=== PATIENT | male | born 1930 | race Caucasian/White ===

== ENCOUNTER 2017-02-03 10:38 | Emergency (ER) | payer MEDICARE, OTHER ==
[~2017-02-03] VITALS: Ht 170.2 cm; Wt 90.9 kg
[~2017-02-03 10:38] MED LIST: ASCO500T7 PO; CALC600T85 PO; FISH PO; FURO20TA PO; GARLIC; K20 PO; LISI10TA9 PO; MVI PO; RISE35TA11 PO; SALINE NASAL SPRAY; [UNRECOGNIZED DRUG - CODE] PO; [UNRECOGNIZED DRUG - CODE] PO; [UNRECOGNIZED DRUG - OTHER]; [UNRECOGNIZED DRUG - OTHER]; iron
[2017-02-03 10:43] VITALS: BP 155/85; PULSE 73; RESP 20; O2SAT 96
--- NOTE | 2017-02-03 10:58 | ED.REPORT ---
HPI-Back Pain 40 and Over Date of Service Feb 03, 2017 ED Provider: Boston Galeas MD Pt is an 86 year old male who presents to the ED with concerns for back pain that started 4 days ago. He reports that the pain is in his lower back, and he is unable to alleviate the pain. He states that the pain is causing him to lose sleep. He denies any pain like this in the past, or having any injury that would have caused this pain. He reports that he injured his back several years ago, which resulted in back pain, but it was a different type of pain. He denies any incontinence, lower extremity numbness, tingling or weakness. He denies any fevers, sense of a urinary tract infection, or any other symptoms. Pt states that he uses an in and out catheter to empty his bladder, due to an "enlarged bladder". Nursing Notes Stated Complaint: BACK PAIN Chief Complaint: Back Pain or Injury Nursing Notes Reviewed: Yes Allergies: Coded Allergies: pseudoephedrine (Verified Allergy, Unknown, 02/03/17) Uncoded Allergies: SULFA (Allergy, Unknown, 06/14/09) Scheduled ASCORBIC ACID-Expunged Drug, Do Not Renew! (ASCORBIC ACID-Expunged Drug, Do Not Renew!) 500 Mg Tablet 500 MG PO DAILY Calcium Carbonate (Caltrate 600) 600 Mg Tablet 600 MG PO DAILY Ciprofloxacin (Ciprofloxacin) 500 Mg Tablet 500 MG PO BID Cyanocobalamin (Cyanocobalamine) 500 Mcg Tab 500 MCG PO DAILY Fish Oil-Expunged Drug, Do Not Renew! (Fish Oil-Expunged Drug, Do Not Renew!) Cap 1,000 MG PO DAILY Furosemide-Expunged Drug, Do Not Renew! (Lasix-Expunged Drug, Do Not Renew!) 20 Mg Tablet 20 MG PO DAILY Hydrocod/APAP-Expunged, Do Not Renew! (Vicodin 5/500-Expunged Drug, Do Not Renew !) 1 Tab Tab 1 TAB PO Q3-4H Lisinopril-Expunged Drug, Do Not Renew! (Lisinopril-Expunged Drug, Do Not Renew! ) 10 Mg Tablet 10 MG PO BID Therapeutic Multivit/Minerals-Expunged Drug, (Therapeutic Multivit/Minerals- Expunged Drug,) 1 Ea Tab 1 TAB PO DAILY Scheduled PRN Cyclobenzaprine (Cyclobenzaprine) 5 Mg Tablet 5 MG PO HS PRN PRN Spasm Ibuprofen (Ibuprofen) 600 Mg Tablet 600 MG PO TID PRN PRN For Pain Miscellaneous Medications ([iron]) ([Saline Nasal [place]]) ([Garlic]) ([Lipoflavonide]) ([Urosdiol]) Potassium Chl-Expunged Drug, Do Not Renew! (Q-CBC-Ppmwclhy Drug, Do Not Renew!) 20 Meq Tabsr 20 MEQ PO Risedronate-Expunged Drug, Do Not Renew! (Risedronate-Expunged Drug, Do Not Renew!) 35 Mg Tablet 35 MG PO General Time Seen by MD: 10:53 Chief Complaint Back pain Hx Obtained From: Patient, Spouse Arrived By: Walk-in Sudden in Onset?: Yes Onset Occurred: 4 days ago Symptom Duration: Since onset Location: : Generalized Quality: Painful Severity: Current: Mild Severity: Maximum: Moderate Similar Sx Previous: Yes Past Medical History Past Medical History In and out cather for bladder emptying Review of Systems Constitutional: Denies: Chills, Fever, Malaise, Weakness - generalized Respiratory: Denies: Non-productive cough, Shortness of breath, Wheezing Cardiovascular: Denies: Chest pain, Syncope GI: Denies: Abdominal pain, Nausea, Vomiting Male: Denies Dysuria, Denies Flank pain, Denies Urinary frequency, Denies Urinary urgency Musculoskeletal: Reports: Back pain, Denies: Neck pain Neurologic: Denies: Syncope, Weakness Complete sys rev & neg: except as marked. Physical Exam Initial Vital Signs Vital Signs (First) Date Time Temp Pulse Resp B/P Pulse Ox O2 Delivery O2 Flow Rate FiO2 02/03/17 10:43 36.3 73 20 155/85 96 Room Air Initial VS: Reviewed Head / Eyes: Atraumatic, Normocephalic, PERRL ENT: Mucous membranes moist, Conjunctiva normal, No scleral icterus Neck: Supple, Non-tender, Full range of motion Skin: Warm, Dry, No cyanosis Psychiatric: Mood/affect normal, Behavior normal, Normal thought content General/Constitutional: Awake, Alert, Cooperative Respiratory / Chest: Atraumatic, Breath sounds NL, Breath sounds = bilat, No respiratory distress Cardiovascular: Heart rate NL, Regular rhythm, Heart sounds NL, No gallop, No murmurs, No rubs Abdomen: Atraumatic, Soft, Non-tender Back: Inspection NL, No CVA tenderness Left lower back tenderness Neurologic: Oriented X3, Speech NL, No motor deficits, No sensory deficits, CN II - XII intact Interpretation & Diagnostics Lab Results Interpretation Test 02/03/17 12:04 Urine Color Yellow (YELLOW) Urine Appearance Cloudy (CLEAR,HAZY) Urine pH 5.0 (5.0-8.0) Urine Specific [place] 1.009 (1.003-1.035) Urine Protein Negativemg/dL (NEG,TRACE) Urine Glucose (UA) Negativemg/dL (NEGATIVE) Urine Ketones Negativemg/dL (NEGATIVE) Urine Occult Blood Small (NEGATIVE) Urine Nitrite Negative (NEGATIVE) Urine Bilirubin Negative (NEGATIVE) Urine Urobilinogen Normalmg/dL (NORMAL) Urine Leukocyte Esterase Large (NEGATIVE) Urine RBC 0-2/hpf (0-2) Urine WBC Packed/hpf (0-5) Urine Epithelial Cells Few/hpf (NONE-MOD) Urine Crystals None seen (NONE SEEN) Urine Bacteria Many/hpf (NONE-FEW) Urine Hyaline Casts None/lpf (NONE) Urine Granular Casts None seen (NONE SEEN) Urine Waxy Casts None seen (NONE SEEN) Urine Red Blood Cell Casts None seen (NONE SEEN) Urine White Blood Cell Casts None seen (NONE SEEN) Urine Mucus None seen (None Seen) Urine Trichomonas None seen (NONE SEEN) Urine Yeast None (NONE SEEN) Urinalysis Comment None Urine Culture Reflexed Indicated Hold Urine Received (Received) Re-Eval/Medical Decision Med Decision/Clinical Course 86-year-old male history of chronic self-catheterization presenting with left lower back pain times several days. He reports history of similar in the past which has been related to musculoskeletal back pain. He has no red flag symptoms. Chronic UTIs. He has no nausea vomiting, fevers chills, abdominal pain. Vital signs are stable. His urine suggests UTI. We will send for culture. His pain is more consistent with musculoskeletal back pain. He was given Toradol with some improvement. Patient was discharged home with parents state nonsteroidal anti-inflammatories, Flexeril as needed. He will be given a prescription for ciprofloxacin. Return precautions for any red flag symptoms for back pain or any sense symptoms pyelonephritis. Otherwise follow-up with primary doctor 1-2 days. Source of Hx: Old records Re-Evaluation/Progress : Time of Eval: 12:13 Re-Evaluation/Progress Note: Pt is rechecked and informed of his diagnosis and the plan to discharge him at this time. He understands and agrees, all questions are addressed. Counseled Regarding: Diagnosis, Lab results, When/why to return to ED Discharge & Departure Impression: Primary Impression: Back pain Additional Impression: UTI (urinary tract infection) Disposition: Home Discharge Condition All VS Reviewed: Yes Condition: Stable Additional Instructions: Take NSAIDS and Flexeril for the pain. NOTE: Flexeril may cause drowsiness, do not drive or drink alcohol while taking this medication. Take the antibiotic ( Ciprofloxacin) as prescribed for the presumed urinary tract infection. Follow up with your primary care provider in the next couple of days. Return to the emergency department with any worsening back pain, fevers, nausea, vomiting, incontinence, numbness, weakness or tingling in your lower extremities or any other worsening or concerning symptoms. Referrals: Dg Doll MD (PCP) [place] Attestation Portions of this note were transcribed by Tamela Lomeli. I, Dr. Galeas personally performed the history, physical exam and medical decision-making; I reviewed and confirmed the accuracy of the information in the transcribed note. Signed by: Alena Villarreal, 02/03/2017 12:13 copies to: Dg Doll MD, Ben M MD Feb 03, 2017 10:58 EZEQUIEL LOMELI Feb 03, 2017 11:08
[2017-02-03] MEDS ORDERED: CYCL5TAB PO (12:08)
[2017-02-03] MEDS ORDERED: CIPR-198 PO (12:08)
[2017-02-03 12:23] VITALS: BP 157/81; PULSE 68; RESP 16; O2SAT 97
[2017-02-03] MEDS ORDERED: IBUP-1827 PO (12:24)
[2017-02-03 12:27] LABS: APPEARANCE,URINE CLOUDY (CLEAR,HAZY); COLOR,URINE YELLOW (YELLOW); OCCULT BLOOD,URINE SMALL (NEGATIVE); UROBILINOGEN,URINE NORMAL (NORMAL)
== END 2017-02-03 12:25 | disposition home or self-care (01) ==
LOC: SED 10:38
DX: M54.5 Low back pain (principal); N39.0 Urinary tract infection, site not specified; B96.1 Klebsiella pneumoniae [K. pneumoniae] as the cause of diseases classified elsewhere; Z88.8 Allergy status to other drugs, medicaments and biological substances
CPT/HCPCS: 81000; 87077; 87086; 87088; 87186; 96372; 99284; J1885

== ENCOUNTER 2017-02-06 14:04 | Inpatient (IN) | payer MEDICARE, OTHER ==
[~2017-02-06] VITALS: Ht 170.2 cm; Wt 91.4 kg
[~2017-02-06 14:04] MED LIST changes: +CIPR-198 PO; +CYCL5TAB PO; +IBUP-1827 PO
[2017-02-06 14:17] VITALS: BP 156/82; PULSE 91; RESP 18; O2SAT 97
[2017-02-06 16:53] LABS: BASOPHILS % (AUTO) 0.3 % (0-3); EOSINOPHILS % (AUTO) 0.8 % (0-5); MONOCYTES % (AUTO) 13.7 % (4-12); Mean Corpuscular Hemoglobin 31.4 pg (27.0-35.0); Mean Corpuscular Volume 94.3 fL (81-100); NEUTROPHILS % (AUTO) 64.6 % (40-74); Platelet Count 163 bil/L (150-400)
--- NOTE | 2017-02-06 17:23 | DRSVH ---
PROCEDURE: US RENAL SONOGRAM INDICATIONS: back pain, UTI TECHNIQUE: Real-time scanning was performed of the kidneys and bladder, with image documentation. COMPARISON: None. FINDINGS: Kidneys: Kidneys are normal in size. Right kidney measures 11.8 cm long; left kidney measures 12.1 cm long. Right renal cortical thickness is 2.0 cm; left renal cortical thickness is 1.4 cm. Renal c ortical echotexture is normal. No hydronephrosis or nephrolithiasis. No suspicious solid mass lesio ns. There is a 3.6 x 4.2 x 2.2 cm right parapelvic cyst. Bladder: Pre-void bladder volume is 277 mL. There is a large right posterior bladder diverticulum. Ureteral jet was visualized. No post void residual was obtained due to patient's discomfort. Miscellaneous: No free pelvic fluid. IMPRESSION: 1. No hydronephrosis or nephrolithiasis. 2. Right bladder diverticulum. Dictated by: Zolia Rosa M.D. on 02/06/2017 at 17:18 Approved by: Zoila Rosa M.D. on 02/06/2017 at 17:21
[2017-02-06 17:28] LABS: TROPONIN T < 0.010 ug/L (0.0-0.011)
--- NOTE | 2017-02-06 17:59 | ED.REPORT ---
HPI-Back Pain 40 and Over Date of Service Feb 06, 2017 ED Provider: Julio Cesar Engel PA-C Nathan is an 86-year-old male presenting with chief complaint low back pain. Patient reports a one-week history of back pain, which began as he is bending over working on his lawnmower. Seen in this department 3 days ago treated with cyclobenzaprine, ketorolac. Patient does not find NSAIDs and acetaminophen helpful. Continues to complain of poor sleep, spastic pain, pain with walking. Reports remote history of back injury. Admits history of diabetes. Denies numbness, tingling, weakness or pain in lower extremity. Denies fever, HIV, organ transplant, immunosuppression, recent surgery, recent infection, history of back surgery, surgical implants and IV drug use. Denies bowel/bladder dysfunction and saddle anesthesia. Also diagnosed with urinary tract infection , likely secondary to his self cathing, which is being treated with ciprofloxacin at his last visit. Review of records indicates that this organism is susceptible. Patient in and out caths because of BPH and an "enlarged bladder." Nursing Notes Stated Complaint: SEVERR BACK PAIN /SPASM WITH CHEST PAIN Chief Complaint: Back Pain or Injury Nursing Notes Reviewed: Yes Allergies: Coded Allergies: Sulfa (Sulfonamide Antibiotics) (Verified Allergy, Intermediate, TONGUE SWELLS, 02/06/17) pseudoephedrine (Verified Allergy, Unknown, 02/06/17) Uncoded Allergies: SULFA (Allergy, Unknown, 06/14/09) Scheduled ([lip-flavonoid]) TAB DAILY Glipizide ER (Glipizide ER) 5 Mg Tab.er.24 5 MG PO DAILY Multivitamin (Multi Vitamin Daily) 1 Each Tablet 1 EACH PO DAILY Pantoprazole (Pantoprazole DR) 40 Mg Tablet.dr 40 MG PO DAILY Scheduled PRN Acetaminophen (Acetaminophen) 325 Mg Tablet 325 MG PO Q4H PRN PRN For Fever Cyclobenzaprine (Cyclobenzaprine) 5 Mg Tablet 5 MG PO HS PRN PRN Spasm Ibuprofen (Ibuprofen) 600 Mg Tablet 600 MG PO TID PRN PRN For Pain Miscellaneous Medications ([Saline Nasal [place]]) Losartan Potassium (Losartan Potassium) 50 Mg Tablet 50 MG PO General Time Seen by MD: 15:56 Chief Complaint Back pain Sudden in Onset?: No Past Medical History Past Medical History In and out cather for bladder emptying Diabetes Review of Systems Review of Systems Note: Negative unless stated otherwise in history of present illness Physical Exam General: Well appearing, well developed, well nourished, no acute distress. Head: Atraumatic, normocephalic. Eyes: No scleral icterus or injection. No discharge. Vision grossly intact. ENT: Voice clear, hearing grossly intact. Respiratory: Regular rate and rhythm. Breath sounds present, clear to auscultation and equal bilaterally. No respiratory distress. No increased work of breathing, speaks in complete sentences. Cardiovascular: Regular rate and rhythm, without murmur, gallop or rub. No pedal edema. Skin: Warm and dry. Back: Inspection, negative midline spinous process tenderness, negative SI tenderness, positive left CVA tenderness. Neurological: Antalgic gait, normal toe rise, normal heel rise. Patellar and Achilles reflexes present and equal B/L. Sensation to sharp touch intact at medial leg, dorsal foot and lateral foot B/L. negative seated straight leg raise , negative seated cross straight leg raise. Psychological: Alert and oriented. Speech appropriate, linear and logical. Behavior appropriate. Initial Vital Signs Vital Signs (First) Date Time Temp Pulse Resp B/P Pulse Ox O2 Delivery O2 Flow Rate FiO2 02/06/17 14:17 36.2 91 18 156/82 97 Room Air Elevated blood pressure Interpretation & Diagnostics Interpretation & Diagnostics: PROCEDURE: CT KUB (PNL-7475) INDICATIONS: back pain IMPRESSION: 1. Nonobstructing right nephrolithiasis. 2. Large right-sided bladder diverticula with irregular bladder wall thickening and perivesicular fat stranding. These findings are suspicious for cystitis. Specifically, infection within the bladder diverticula. 3. Findings suspicious for hepatic cirrhosis. 4. L1 wedge compression deformity which is new when compared with prior CT from 2011. The acuity of this finding is unknown. Please correlate with clinical history and evaluate for focal acute pain in this region. 5. Normal appendix. Lab Results Interpretation Result Diagram: 02/06/17 1635 02/06/17 1635 Test 02/06/17 16:35 White Blood Count 10.6th/mm3 (3.8-10.1) Red Blood Count 4.77mil/mm3 (4.40-5.80) Hemoglobin 15.0g/dL (13.8-17.2) Hematocrit 45.0% (41.0-50.0) Mean Corpuscular Volume 94.3fL (81-100) Mean Corpuscular Hemoglobin 31.4pg (27.0-35.0) Mean Corpuscular Hemoglobin Concent 33.3% (32.0-37.0) Red Cell Distribution Width 13.6% (12.3-15.4) Platelet Count 163bil/L (150-400) Neutrophils (%) (Auto) 64.6% (40-74) Lymphocytes (%) (Auto) 20.2% (14-46) Monocytes (%) (Auto) 13.7% (4-12) Eosinophils (%) (Auto) 0.8% (0-5) Basophils (%) (Auto) 0.3% (0-3) Sodium Level 133mEq/L (134-144) Potassium Level 4.3mEq/L (3.5-5.2) Chloride Level 96mEq/L (97-108) Carbon Dioxide Level 21mmol/L (18-29) Blood Urea Nitrogen 14mg/dL (8-27) Creatinine 0.79mg/dL (0.76-1.27) Estimat Glomerular Filtration Rate 99mL/min (>59) Glucose Level 208mg/dL (60-99) Calcium Level 9.3mg/dL (8.5-10.1) Total Bilirubin 0.6mg/dL (0.0-1.2) Aspartate Amino Transf (AST/SGOT) 25U/L (0-50) Alanine Aminotransferase (ALT/SGPT) 24U/L (0-44) Alkaline Phosphatase 148U/L (25-160) Troponin T < 0.010ug/L (0.0-0.011) Total Protein 7.7g/dL (6.4-8.4) Albumin 3.4g/dL (3.4-5.0) Hold Law Top Tube Received (Received) ECG Interpretation ECG Interpretation: Sinus rhythm with a rate of 79 bpm. Prolonged FL interval greater than 220, probable left atrial enlargement, old inferior infarct. Negative ST elevation changes. Time: 19:09 Interpreted by: ED physician () US Renal/Urinary Tract PROCEDURE: US RENAL SONOGRAM INDICATIONS: back pain, UTI IMPRESSION: 1. No hydronephrosis or nephrolithiasis. 2. Right bladder diverticulum. Exam Performed by: Radiologist Re-Eval/Medical Decision Med Decision/Clinical Course Is an 86-year-old male with a one-week history of low back pain that began as he was bending over working on his lawnmower. See this department about 3 days ago, treated with NSAIDs, cyclobenzaprine which he says he no longer helpful. Reports cramping pain which occasionally so bad that it causes chest pain, which the patient believes is his heart. Also diagnosed with a UTI which review of cultures indicates is being treated appropriately with ciprofloxacin. Denies neurological symptoms, bowel/bladder dysfunction, saddle anesthesia, fever. Physical examination reveals normal neurological examination, left CVA tenderness, negative midline spinous process tenderness. Discussed the case with Dr. Galeas, who had seen the patient initially. He recommended CBC , CMP and renal ultrasound as well as EKG, troponin. EKG and troponin are reassuring against NM. CBC reveals a mild leukocytosis, CMP is unremarkable. At this point I am reassured that this is most likely musculoskeletal back pain, and less likely to be AAA, nephrolithiasis, pyelonephritis, cauda equina, epidural abscess, epidural hematoma, trauma. Patient responds poorly to 10 mg oxycodone, 5 mg baclofen. I discussed this with Dr. Costa, as Dr. Axel Mg has gone off shift. Dr. Costa recommends CT KUB, which reveals nonobstructing right nephrolithiasis, large right-sided bladder diverticula with stranding suspicious for cystitis, findings suspicious for hepatic cirrhosis as well as an L1 wedge compression deformity new since 2011. Unknown acuity. Discussed this finding with Dr. Ang, who recommends brace and spine follow-up. I discussed this with Dr. Alvarado recommends a lumbar brace and pain medications , admission if necessary. Patient does not feel that this pain is sufficiently controlled to return to home. He responds favorably to 1 mg IM Dilaudid. I discussed this with , who except admit. Re-Evaluation/Progress : Time of Eval: 21:21 Re-Evaluation/Progress Note: Patient complains of worsening pain. He wishes to be admitted for pain control. Consultation #1: Referral / Consult Name: Ismael Ang MD Consulted With: Orthopedic Call Returned at: 21:00 Note: Recommends TLSO brace, spine surgery follow-up. Consultation #2: Referral / Consult Name: Yo Alvarado MD Call Returned at: 21:57 Note: Dr. Alvarado believes this can be managed outpatient. Advises lumbar brace and pain medications, admission for pain if necessary. Consultation #3: Referral / Consult Name: Dayne Greenfield MD Consulted With: Hospitalist Call Returned at: 22:17 Foam Fabricator: Accepts admit Discharge & Departure Impression: Primary Impression: Compression fracture of L1 lumbar vertebra Encounter type: initial encounter Fracture type: closed Qualified Code: S32.010A - Wedge compression fracture of first lumbar vertebra, initial encounter for closed fracture Additional Impression: Elevated blood pressure reading Disposition: ADMITTED TO HOSPITAL Referrals: Dg Doll MD (PCP) EDSupervising Provider for APC: Boston Galeas MD Attending Statement I agree with the assessment and plan. I performed a physical examination and review the diagnostics. copies to: Dg Doll MD, Seth PA-C Feb 06, 2017 17:59 Otis Costa DO Feb 08, 2017 03:53 Encounter type: initial encounter Fracture type: closed Qualified Code: S32.010A - Wedge compression fracture of first lumbar vertebra, initial encounter for closed fracture Additional Impression: Elevated blood pressure reading Disposition: ADMITTED TO HOSPITAL Referrals: Dg Doll MD (PCP) EDSupervising Provider for APC: Boston Galeas MD copies to: Dg Doll MD, Seth PA-C Feb 06, 2017 17:59 copies to: Dg Doll MD, Seth PA-C Feb 06, 2017 17:59 rest. Reasonable activity as tolerated is the best. Apply ice to the affected area 4 times a day for 20 minutes over the next 24 hours. After that you will probably find warm compresses most helpful. The pain is best treated with 800 mg of ibuprofen (Advil, Motrin) every 6 hours , or 1000 mg of acetaminophen (Tylenol) every 6 hours. These drugs can be taken at the same time for more severe pain. I will write a prescription for a small amount of oxycodone to be taken every 4-6 hours for pain not controlled by these other medications. Please do not drive or drink alcohol within 4 hours of taking this medication. I will also write prescription for baclofen 5 mg to be taken 3 times a day. This should be helpful for the spasticity. Do not use this with cyclobenzaprine. Continue taking your ciprofloxacin. Most of all be patient: 70-90% of people with injuries presenting like yours will resolve within 7 weeks, even without treatment. Follow-up with your primary care provider in the next week or two to be sure your recovery is progressing as expected. Return the emergency department for new or worsening symptoms such as loss of bowel/bladder control, numbness between your legs, new weakness/numbness or high fever. Follow-up with your primary care provider as soon as possible. Return to emergency department for new or worsening symptoms including loss of bowel/bladder function, fever or numbness between your legs. I also note that your blood pressure was elevated during your visit to the emergency department. Please discuss this with your primary care provider. Referrals: Dg Doll MD (PCP) EDSupervising Provider for APC: Boston aGleas MD copies to: Dg Doll MD, Seth PA-C Feb 06, 2017 17:59
[2017-02-06] MEDS ORDERED: HYDROmorphone 0.5 mg/0.5 mL iSecure Syringe IM ONE (19:25)
--- NOTE | 2017-02-06 20:20 | DRSVH ---
PROCEDURE: CT KUB (PNL-7475) INDICATIONS: back pain TECHNIQUE: Noncontrast 5 mm thick sections acquired from the diaphragms to the symphysis. 5 mm thick coronal an d sagittal reformats were then performed. For radiation dose reduction, the following was used: aut omated exposure control, adjustment of mA and/or kV according to patient size. COMPARISON: [facility], CT, ABD/PELVIS W/CON (PN), 01/23/2012, 14:29. FINDINGS: Image quality: Excellent. Lung bases: Lung bases are clear. Heart size is enlarged. Urinary system: Both kidneys are normal in size. There is a nonobstructing 3 mm diameter inferior po le right renal calculus which is unchanged in position when compared with the study dated 01/23/12. A low density right parapelvic cyst is redemonstrated. No hydronephrosis or perinephric fat stranding. Both ureters appear non-dilated throughout their expected courses. There is irregular thickening of the bladder wall. Additionally, there is a large irregularly margina lenka superior right and a more circumscribed posterior right bladder diverticulum. These appear decomp ressed on the current study are likely present on the comparison study dated 01/23/12. There is mild p erivesicular fat stranding most notable around the 2 right-sided bladder diverticula. Other solid organs: The liver has a nodular appearance suggesting cirrhotic transformation. A low den sity cystic lesion is within the left hepatic lobe unchanged from the study dated 01/23/12 which likel y represents a hepatic cyst. The spleen demonstrates normal size. Gallbladder is surgically absent. Pancreas is normal in contours. Punctate calcifications within the body of the pancreas suggest prior pancreatitis. No adrenal nodules. Peritoneum and bowel: Unenhanced bowel loops demonstrate normal wall thickness and caliber. The appe ndix is thin walled and gas filled. Anastomotic suture is noted within the sigmoid colon. No free fl uid or air. Nodes and vessels: No retroperitoneal or mesenteric adenopathy by size criteria. Aorta and inferior vena cava are normal in caliber. Abdominal wall: No ventral hernias. Pelvis: No free pelvic fluid. No inguinal adenopathy. There is a small fat-containing right inguina l hernia. Bones: There is a L1 wedge compression deformity with approximately 60% vertebral body height loss. T his is new when compared with the prior study dated 01/23/12. No other compression deformities of the lumbar spine. Severe degenerative changes are present L5-S1. IMPRESSION: 1. Nonobstructing right nephrolithiasis. 2. Large right-sided bladder diverticula with irregular bladder wall thickening and perivesicular fat stranding. These findings are suspicious for cystitis. Specifically, infection within the bladder di verticula. 3. Findings suspicious for hepatic cirrhosis. 4. L1 wedge compression deformity which is new when compared with prior CT from 2011. The acuity of t his finding is unknown. Please correlate with clinical history and evaluate for focal acute pain in t his region. 5. Normal appendix. Dictated by: Zoila Rosa M.D. on 02/06/2017 at 20:11 Approved by: Zoila Rosa M.D. on 02/06/2017 at 20:18
[2017-02-06] MEDS ORDERED: HYDROmorphone 1 mg/mL Inj IM ONE (21:25)
[2017-02-06 21:36] VITALS: BP 153/73; PULSE 91; RESP 16; O2SAT 92
[2017-02-06] MEDS ORDERED: Ondansetron 2 mg/mL 2 mL Inj IVPUSH PRN (22:15)
[2017-02-06] MEDS ORDERED: Polyethylene Glycol (PEG) 17 Gm Powder PO PRN (22:15)
[2017-02-06] MEDS ORDERED: Alum-Mag Hydrox-Simeth 30 mL Suspension PO PRN (22:15)
[2017-02-06] MEDS ORDERED: HYDROmorphone 0.5 mg/0.5 mL iSecure Syringe IVPUSH PRN ×2 (22:15→23:45)
--- NOTE | 2017-02-06 23:04 | PCM.HPMED ---
Subjective Date of Service Feb 06, 2017 Primary Provider: Admitting Physician: Dayne Greenfield MD Primary Care Physician: Dg Doll MD Attending Physician: Dayne Greenfield MD Admit Status: From the Emergency Department, 23-Hour Observation, Non-Telemetry Chief Complaint: Severe Back pain History of Present Illness: Nathan Ponce is an 86-year-old male presenting with Diabetes, Aortic regurgitation, Hypertension, Obesity and GERD who presented to [facility] emergency department due to worsening back pain Patient reported he has been having on and off back pain for year but since the pain has progressively worsened. He was mowing his lawn and was bending over a lot when he felt the pain. Pain manly located in the lumbar area , described as like someone stabbing a sharp knife, no radiation down his legs and no bowel or urinary bowel dysfunction. Associated symptoms includes limited mobility due to pain, difficulty walking. Denies fever, HIV, organ transplant, immunosuppression, recent surgery, recent infection, history of back surgery, surgical implants and IV drug use. He was evaluated to the emergency department 3 days ago treated with cyclobenzaprine, ketorolac. Patient does not find NSAIDs and acetaminophen helpful. Case discussed with HAROON Harrell who spoke to Dr Alvarado (Spinal surgeon) after imaging confirmed L1 compression. No emergent surgery indicated and plans to admit to hospital for pain control Review of Systems: Pertinent positives as noted in HPI. All other systems were reviewed and are negative Allergies Coded Allergies: Sulfa (Sulfonamide Antibiotics) (Verified Allergy, Intermediate, TONGUE SWELLS, 02/06/17) pseudoephedrine (Verified Allergy, Unknown, 02/06/17) Uncoded Allergies: SULFA (Allergy, Unknown, 06/14/09) Home Medications From Next [facility], not yet confirmed Nathan Ponce [id number] 04/25/2016 09:20 AM 08/22 albuterol sulfate HFA 90 mcg/actuation aerosol inhaler inhale 2 puff by inhalation route every 4 - 6 hours as needed Aspirin Low Dose 81 mg tablet,delayed release take 1 tablet by oral route every day Caltrate 600 600 mg (1,500 mg) tablet losartan 50 mg tablet take 1 tablet by oral route every day metformin 1,000 mg tablet take 1/2 tablet by oral route 1 times every day with morning and evening meals Monurol 3 gram oral packet take 1 sachet by oral route dissolved in 3 to 4 ounces (1/2 cup) of water as a single dose pantoprazole 40 mg tablet,delayed release TAKE 1 TABLET DAILY ON AN EMPTY STOMACH FOR ACID REFLUX PMH Diabetes mellitus without any insulin requirement Congestive Heart Failure Hypertension Esophageal reflux Meniere's disease Hepatitis B Sleep apnea with Obesity Benign prostatic hyperplasia Vertigo Aortic root enlargement with mild to moderate aortic regurgitation . Surgical History Left hip surgery Cardiac cath Partial colectomy for gallbladder cyst Cholecystectomy Inge fundoplication Sigmoid resection for diverticular abscess Family History reviewed with no significant history Social History Hx Alcohol Use: No Hx Substance Use: No Hx Tobacco Use: Yes (Quit 4 to 6 yrs ago) Smoking Status: Former Smoker Living Arrangement: with Family Exam Vital Signs Vital Sign - Last Date Time Temp Pulse Resp B/P Pulse Ox O2 Delivery O2 Flow Rate FiO2 02/06/17 21:36 36.4 91 16 153/73 92 Room Air Exam General: Alert, Oriented X3, Cooperative, No acute Distress Eyes: PERRLA, Scleral Anicteric Mouth: Mouth Normal, Mucous Membranes Moist/[place] Neck: Supple, no Thyromegaly, trachea central. Chest & Lungs: Clear to auscultation & percussion, No adventitious breath sounds, no crackles, no wheeze Cardiovascular: Normal S1, Normal S2, No Rubs/Gallops, Regular Rate/Rhythm, (No JVD, no peripheral edema) Pulses: Radial (present and equal), Dorsalis Pedi (present and equal) Abdomen: Soft, Non-tender, Non-distended, Normoactive bowel tones. Musculoskeletal: Limited lumbar motion, tenderness around lumbar area, muscle spams and tightness felt. no swollen or erythematous joints Extremities: No edema, no cyanosis, no clubbing. Skin: No rashes. Warm and dry, no erythematous areas Neurological: Grossly neurologically intact, Normal Speech, Sensation Intact Lymphatic: Lymph nodes Cervical and Axillary not palpable. Lab and Diagnostics Labs Laboratory Tests Test 02/06/17 16:35 White Blood Count 10.6th/mm3 (3.8-10.1) Red Blood Count 4.77mil/mm3 (4.40-5.80) Hemoglobin 15.0g/dL (13.8-17.2) Hematocrit 45.0% (41.0-50.0) Mean Corpuscular Volume 94.3fL (81-100) Mean Corpuscular Hemoglobin 31.4pg (27.0-35.0) Mean Corpuscular Hemoglobin Concent 33.3% (32.0-37.0) Red Cell Distribution Width 13.6% (12.3-15.4) Platelet Count 163bil/L (150-400) Neutrophils (%) (Auto) 64.6% (40-74) Lymphocytes (%) (Auto) 20.2% (14-46) Monocytes (%) (Auto) 13.7% (4-12) Eosinophils (%) (Auto) 0.8% (0-5) Basophils (%) (Auto) 0.3% (0-3) Sodium Level 133mEq/L (134-144) Potassium Level 4.3mEq/L (3.5-5.2) Chloride Level 96mEq/L (97-108) Carbon Dioxide Level 21mmol/L (18-29) Blood Urea Nitrogen 14mg/dL (8-27) Creatinine 0.79mg/dL (0.76-1.27) Estimat Glomerular Filtration Rate 99mL/min (>59) Glucose Level 208mg/dL (60-99) Calcium Level 9.3mg/dL (8.5-10.1) Total Bilirubin 0.6mg/dL (0.0-1.2) Aspartate Amino Transf (AST/SGOT) 25U/L (0-50) Alanine Aminotransferase (ALT/SGPT) 24U/L (0-44) Alkaline Phosphatase 148U/L (25-160) Troponin T < 0.010ug/L (0.0-0.011) Total Protein 7.7g/dL (6.4-8.4) Albumin 3.4g/dL (3.4-5.0) Hold Law Top Tube Received (Received) Result Diagram: 02/06/17 1635 02/06/17 1635 X-Rays, CTs and MRIs US RENAL SONOGRAM 02/06 IMPRESSION: 1. No hydronephrosis or nephrolithiasis. 2. Right bladder diverticulum. Dictated by: Zoila Rosa M.D. on 02/06/2017 at 17:18 Approved by: Zoila Rosa M.D. on 02/06/2017 at 17:21 CT KUB 02/06 IMPRESSION: 1. Nonobstructing right nephrolithiasis. 2. Large right-sided bladder diverticula with irregular bladder wall thickening and perivesicular fat stranding. These findings are suspicious for cystitis. Specifically, infection within the bladder diverticula. 3. Findings suspicious for hepatic cirrhosis. 4. L1 wedge compression deformity which is new when compared with prior CT from 2012. The acuity of this finding is unknown. Please correlate with clinical history and evaluate for focal acute pain in this region. 5. Normal appendix. Dictated by: Zoila Rosa M.D. on 02/06/2017 at 20:11 Approved by: Zoila oRsa M.D. on 02/06/2017 at 20:18 Assessment & Plan Nathan Ponce is an 86-year-old male presenting with Diabetes, Aortic regurgitation, Hypertension, Obesity and GERD who presented to [facility] emergency department due to worsening back pain 1. Acute Lower back pain secondary to L1 wedge compression. Present on admission. Ongoing and persistent Pain uncontrolled requiring hospitalization. HAROON Harrell in the ED contacts Dr Alvarado for recommendations. Differential diagnosis includes metastatic disease - RESEARCH ENVIRONMENTAL SCIENTIST Dilaudid, consider Palliative consult to help with pain management - Vistaril PRN for spasm - Dr Alvarado (Neurosurgeon) recommends follow up as outpatient not indication for surgery 2 Diabetes Type 2, Chronic - holding Metformin - check A1c - low correction Lispro algorithm 3 Aortic root enlargement with mild to moderate aortic regurgitation Stable with no intervention after recent Cardiology evaluation 4 Hypertension - continue Losartan 50 mg daily 5 GERD - continue Protonix daily - Acetaminophen as needed for mild pain/fever/headache - Bowel regimen as needed - Antiemetic as needed Patient is admitted under observation status with expected length of stay less than 2 midnights due to severity of presenting symptoms, risk of adverse event, and complexity of treatment plan. . VTE Prophylaxis: Sub-Q Heparin (Unfractionated) Resuscitation Status: CPR: Attempt Resuscitation Dayne Greenfield MD Feb 06, 2017 23:04
[2017-02-06] MEDS ORDERED: Glucose 40% Oral Gel 15 Gm Tube PO PRN (23:05)
[2017-02-06] MEDS ORDERED: Dextrose 10% 250 ML IV PRN (23:05)
[2017-02-06 23:06] VITALS: BP 153/73; PULSE 91; RESP 16; O2SAT 92
[2017-02-06 23:16] VITALS: BP 156/90; PULSE 93; RESP 18; O2SAT 94
[2017-02-06] MEDS ORDERED: Dextrose 5% 500 ML IV SCH (23:41)
[2017-02-06] MEDS ORDERED: HYDROmorphone PCA 0.2 mg/mL 30 mL Inj IV PRN (23:45)
[2017-02-06] MEDS: Heparin 5,000 Unit/mL Inj SUBQ SCH (23:56)
[2017-02-07 01:45] VITALS: RESP 16; O2SAT 92
[2017-02-07] MEDS: hydrOXYzine Pamoate 25 mg Capsule PO PRN ×2 (02:58→14:58)
[2017-02-07 04:28] VITALS: BP 144/97; PULSE 80; RESP 20; O2SAT 92
--- NOTE | 2017-02-07 04:29 | NUR ---
Admission Pt admitted to [facility] Rm 1021 at 2300 from the ED. 3 persons needed to transfer Pt from [place] to bed. Pt is here with L1 compression fx. He is in severe pain, 10/10 and with back spasms. IV to Rt FA asymptomatic, flushed and is SL. Pt is CPR limited. Oriented to room, call light and bed controls. Rec'd dilaudid and baclofen shortly after arrival. Ineffective. MD in to assess Pt and ordered INVENTORY SPECIALIST MANAGER dilaudid as Pt was asking for it and has used in past. Pt has neurogenic bladder and self caths at home. Rec'd orders for martinez cath. Inserted with 300cc out. Pt is A/O x4, making needs known. Call light in reach, bed in low position, care continues
[2017-02-07 06:45] VITALS: RESP 16; O2SAT 97
[2017-02-07] MEDS: HYDROcodone-APAP 5-325 mg Tablet PO PRN ×4 (07:26→20:28)
[2017-02-07] MEDS ORDERED: Polyethylene Glycol (PEG) 17 Gm Powder PO ONE (07:45)
[2017-02-07] MEDS: Insulin LISPRO 300 Unit/3 mL Inj SUBQ SCH ×4 (08:00→22:00)
[2017-02-07 08:32] VITALS: BP 145/85; PULSE 87; RESP 18; O2SAT 97
[2017-02-07] MEDS: Heparin 5,000 Unit/mL Inj SUBQ SCH ×3 (08:49→23:56)
[2017-02-07] MEDS: Polyethylene Glycol (PEG) 17 Gm Powder PO SCH (08:49)
[2017-02-07] MEDS: Lidocaine Topical 5% Patch TOPICAL SCH (08:49)
--- NOTE | 2017-02-07 10:44 | NUR ---
Case Management- PORTILLO explained and signed by patient. Copy given to patient. Orginal placed in chart. Regina Tovar RN/ UR
--- NOTE | 2017-02-07 13:10 | PCM.PNMED ---
Subjective Date of Service Feb 07, 2017 Subjective pt c/o severe back pain, denied urinary difficulty difficult to communicate, easily fell asleep on TRANSFORMATION MANAGER dilaudid Exam Vital Signs Vital Sign - Last Date Time Temp Pulse Resp B/P Pulse Ox O2 Delivery O2 Flow Rate FiO2 02/07/17 06:45 16 97 02/07/17 04:28 36.7 80 144/97 02/06/17 23:06 Room Air Intake and Output 02/06/17 02/06/17 02/07/17 Cumulative From/Thru 15:00 23:00 07:00 02/06/17 14:17 - 02/07/17 06:44 Intake Total 216 ml 216 ml Output Total 700 ml 1100 ml 1800 ml Balance -700 ml -884 ml -1584 ml Intake Oral 150 ml 150 ml IV Total 66 ml 66 ml Output Urine Total 700 ml 1100 ml 1800 ml # Bowel Movements 0 0 Exam elderly male, agitated with pain, NAD, comfortably laying down on the bed no JVD, MMM, no LAD RRR, nl s1, s2 no mrg CTAB, no w,c S,distended, NT, hypoactiveBS+ warm, no edema, pulses 2/2 LE motor 4/5 limited due to pain, sensory intact to dull Diffuse td on lower back, spinal IVs and Medications Medications Reviewed: Medications were reviewed in detail Lab and Diagnostics Result Diagram: 02/06/17 1635 02/06/17 1635 X-Rays, CTs and MRIs US RENAL SONOGRAM 02/06 IMPRESSION: 1. No hydronephrosis or nephrolithiasis. 2. Right bladder diverticulum. Dictated by: Zoila Rosa M.D. on 02/06/2017 at 17:18 Approved by: Zoila Rosa M.D. on 02/06/2017 at 17:21 CT KUB 02/06 IMPRESSION: 1. Nonobstructing right nephrolithiasis. 2. Large right-sided bladder diverticula with irregular bladder wall thickening and perivesicular fat stranding. These findings are suspicious for cystitis. Specifically, infection within the bladder diverticula. 3. Findings suspicious for hepatic cirrhosis. 4. L1 wedge compression deformity which is new when compared with prior CT from 2012. The acuity of this finding is unknown. Please correlate with clinical history and evaluate for focal acute pain in this region. 5. Normal appendix. Dictated by: Zoila Rosa M.D. on 02/06/2017 at 20:11 Approved by: Zoila Rosa M.D. on 02/06/2017 at 20:18 Assessment & Plan Nathan Ponce is an 86-year-old male presenting with Diabetes, Aortic regurgitation, Hypertension, Obesity and GERD who presented to [facility] emergency department due to worsening back pain acute, active 1. intractable acute Lower back pain secondary to L1 wedge compression. Present on admission. -pain is still not controlled even with TRANSFORMATION MANAGER, -stopped TRANSFORMATION MANAGER Dilaudid, plan to chg to oral agent. -will start fentanyl patch 12mcg 3d, tramadol 50mg q8h, norco prn -try to avoid narcotics as much as possible -daily PT -monitor closely on respiratory status, as pt is opioid naive chronic, stable 2 Diabetes Type 2, Chronic, holding Metformin, awaits A1c, continue low correction Lispro algorithm 3 Aortic root enlargement with mild to moderate aortic regurgitation, stable with no intervention after recent Cardiology evaluation 4 Hypertension, continue Losartan 50 mg daily 5 GERD, continue Protonix daily dispo: in 1-2more days, appreciate PT assessment to optimize dispo. VTE Prophylaxis: Sub-Q Heparin (Unfractionated) VTE Mechanical Devices: Intermittant Pneumatic CD Resuscitation Status: CPR: Attempt Resuscitation Time spent 35min Chad Lima MD Feb 07, 2017 08:06
[2017-02-07] MEDS ORDERED: LOSA50TA37 PO (13:19)
[2017-02-07] MEDS ORDERED: [UNRECOGNIZED DRUG - OTHER] (13:19)
[2017-02-07] MEDS ORDERED: PANT40TA3 PO (13:19)
[2017-02-07] MEDS ORDERED: GLIP5TAB26 PO (13:19)
[2017-02-07] MEDS ORDERED: ACET325T51 PO (13:19)
[2017-02-07] MEDS ORDERED: MULT-1018 PO (13:21)
[2017-02-07 14:30] VITALS: BP 158/76; PULSE 62; RESP 18; O2SAT 98
--- NOTE | 2017-02-07 15:07 | NUR ---
Social Work- Initial Assessment Data: See Initial Assessment. Pt is a 86 year old male admitted 02/06/17 under observation status for L1 Compression Fracture per H&P. Pt's pain will need to be controlled on oral medication prior to discharge. Pt's insurance is [employer]. Pt's PCP is Dg Doll MD. SW met with pt and /DPLEONILA Ponce [phone] at bedside regarding discharge plan, SW role explained. Pt was alert and oriented but periodically fell asleep during this assessment and pt's completed most of the questions. Pt and reside in [place] in a house with no internal steps. Pt has a ramp to access his home. Pt uses no DME at baseline but has a walker and cane available at home. Pt does not drive. Pt has no history of HH but has history at [facility] for rehab after a hip fracture. Pt's is interested in Meals on Wheels, information will be provided at bedside. Pt has no LTC or VA benefits. PT orders are active, pt was not able to work with PT secondary to severe pain and spasms. PT will continue to follow. SW will await MD orders for HH and will continue to follow for discharge needs. Pt anticipated to discharge home with spouse, R/O HH services. Pt's payor and observation status is a barrier to SNF at this time. Assessment: Pt who is in extreme pain and who is independent at baseline. Plan: PT will reassess patient tomorrow 02/08. Pt to be provided information about Meals on Wheels. Pt may benefit from HH services at home, SW to await MD order before pursuing this. SW will await MD orders for HH and will continue to follow for discharge needs. Pt anticipated to discharge home with spouse, R/O HH services. Pt's payor and observation status is a barrier to SNF at this time. EILEEN Melendez Addendum: 02/07/17 at 1509 by YUNG VALDEZ Amended: Links added.
--- NOTE | 2017-02-07 15:52 | NUR ---
BACK PAIN P- Patient having back pain with spasms with any kind of activity. State "9/10" pain when shooting pain comes. I- Fentanyl patch applied, Lidoderm patch to back applied, [place] given Q4 and Ultram Q6. Vistaril given Q6. E-Patient continues to have spasms, made aware.
[2017-02-07] MEDS ORDERED: HYDROmorphone 0.5 mg/0.5 mL iSecure Syringe IVPUSH ONE (16:50)
[2017-02-07 21:25] VITALS: BP 146/79; PULSE 77; RESP 16; O2SAT 93
[2017-02-07 21:56] LABS: APPEARANCE,URINE CLOUDY (CLEAR,HAZY); COLOR,URINE YELLOW (YELLOW); OCCULT BLOOD,URINE MODERATE (NEGATIVE); PH,URINE 5.5 (5.0-8.0); UROBILINOGEN,URINE NORMAL (NORMAL)
--- NOTE | 2017-02-08 02:50 | NUR ---
Pain Pt. was able to ambulate to bathroom to brush teeth with one person assist. Pt. is still in a lot of pain with activity. However, during assessment pt. rates pain 5/10. Pt. reports pain is the lowest when lying down and slightly turned to side. [place] PO given earlier in shift, as pain umu with activity. However, pt. has been sleeping for most of the night, and has not requested any PRN pain meds. Will continue to monitor.
[2017-02-08 05:15] VITALS: BP 169/83; PULSE 80; RESP 18; O2SAT 96
[2017-02-08] MEDS: HYDROcodone-APAP 5-325 mg Tablet PO PRN ×4 (05:35→21:15)
[2017-02-08 06:18] LABS: Mean Corpuscular Hemoglobin 31.7 pg (27.0-35.0); Mean Corpuscular Volume 94.9 fL (81-100)
[2017-02-08 06:35] LABS: Magnesium 1.9 mg/dL (1.6-2.6); Phosphorus 3.5 mg/dL (2.5-4.9)
[2017-02-08] MEDS: Insulin LISPRO 300 Unit/3 mL Inj SUBQ SCH ×4 (08:00→22:00)
[2017-02-08] MEDS ORDERED: Fentanyl TOPICAL (09:23)
[2017-02-08] MEDS ORDERED: TRAM-14 PO (09:23)
[2017-02-08] MEDS ORDERED: Acetaminophen PO (09:23)
[2017-02-08] MEDS: Polyethylene Glycol (PEG) 17 Gm Powder PO SCH (09:23)
[2017-02-08] MEDS: Heparin 5,000 Unit/mL Inj SUBQ SCH ×2 (09:35→16:54)
[2017-02-08] MEDS ORDERED: DOCU-41 PO (11:16)
[2017-02-08] MEDS ORDERED: POLY17PO6 PO (11:16)
[2017-02-08] MEDS ORDERED: LIDO700A6 TOPICAL (11:17)
--- NOTE | 2017-02-08 11:19 | PCM.DIMED ---
Discharge Instructions Date of Service Feb 08, 2017 Dates of Hospitalization Feb 06, 2017 at 22:37 Discharge Diagnosis Discharge Diagnosis Intractable back pain likely due to L1 compression fracture Medication Instructions Additional med instructions Pain regimen Tramadol 50mg three times per day [id number] three time per day Lidocaine patch daily Fentanyl 12mcg patch every 3days Please also take Miralax, colace while your are on these pain regimen Diet Discharge Diet: No restrictions Activity Discharge Activity: Home Health Phyical Therapy Call your provider Call your provider for: Other Patient Instructions Patient Instructions You were hospitalized due to severe back pain, likely due to compression fracture at your lower back. You were started on new regimen for your pain, pain was relatively controlled well. Please continue to work with physical therapy at home. follow up with your doctor in 2weeks Follow-up Provider: Dg Doll MD Follow-up with PCP in: 2 weeks Chad Lima MD Feb 08, 2017 09:44
[2017-02-08] MEDS ORDERED: Polyethylene Glycol (PEG) 17 Gm Powder PO ONE (11:20)
[2017-02-08] MEDS: hydrOXYzine Pamoate 25 mg Capsule PO PRN (12:04)
[2017-02-08] MEDS: Lidocaine Topical 5% Patch TOPICAL SCH (14:17)
[2017-02-08 15:08] VITALS: BP 156/82; PULSE 73; RESP 16; O2SAT 96
--- NOTE | 2017-02-08 15:16 | NUR ---
Social Work: Discharge D: EMR reviewed. Pt is on day 2 of hospitalization. Per MD in AM multi-disciplinary rounds, pt is medically stable and will discharge today. Per MD this afternoon, pt is awaiting bowel movement prior to discharge. PIERCE received order for PT/OT 2x/week. provided pt and family HH choicelist. Pt and family chose [facility]. PIERCE placed T/C to [facility] at [facility] for referral. PIERCE provided access. PIERCE confirmed [facility] will pick-up completed F2F from by 1600 today. Anita confirmed [facility] will accept pt and is aware pt may discharge today. A: Pt for whom PT OT 2x/week has been deemed medically necessary. P: Pt to open with [facility] PT OT 2x/week as per MD order. Pt to transport home with spouse via POV today - pending bowel movement. PIERCE will continue to follow. EILEEN Mcclure
--- NOTE | 2017-02-08 19:42 | NUR ---
Pain Patient continues to have intermittent spasms to back at times. Pt was up with physical therapy and ambulated out into hallway today with sba and walker. Patient medicated for pain t/o day. Patient complaining of feeling constipated so patient has been given miralax, prune juice and senna today no stool thus far.
[2017-02-08 20:06] VITALS: BP 167/81; PULSE 77; RESP 18; O2SAT 94
--- NOTE | 2017-02-08 21:43 | PCM.PNMED ---
Subjective Date of Service Feb 08, 2017 Subjective pt was not able to urinate after martinez was discontinued. reported 1400cc urine output noted after martinez reinsertion also no BM with distended bowels, with multiple bowel regimen therefore d/c was delayed today pt still had back pain but controlled with current regimen. able to ambulate with PT Exam Vital Signs Vital Sign - Last Date Time Temp Pulse Resp B/P Pulse Ox O2 Delivery O2 Flow Rate FiO2 02/08/17 20:06 36.6 77 18 167/81 94 Room Air 02/07/17 14:30 2.00 Intake and Output 02/07/17 02/07/17 02/08/17 Cumulative From/Thru 15:00 23:00 07:00 02/06/17 14:17 - 02/07/17 19:22 Intake Total 240 ml 456 ml Output Total 350 ml 2150 ml Balance -110 ml -1694 ml Intake Oral 240 ml 390 ml IV Total 66 ml Output Urine Total 350 ml 2150 ml # Bowel Movements 0 0 Exam Elderly male, agitated with pain, NAD, comfortably laying down on the bed no JVD, MMM, no LAD RRR, nl s1, s2 no mrg CTAB, no w,c S,distended, NT, hypoactiveBS+ warm, no edema, pulses 2/2 LE motor 4/5 limited due to pain, sensory intact to dull Diffuse td on lower back, spinal IVs and Medications Medications Reviewed: Medications were reviewed in detail Lab and Diagnostics Result Diagram: 02/08/17 0520 02/08/17 0520 X-Rays, CTs and MRIs US RENAL SONOGRAM 02/06 IMPRESSION: 1. No hydronephrosis or nephrolithiasis. 2. Right bladder diverticulum. Dictated by: Zoila Rosa M.D. on 02/06/2017 at 17:18 Approved by: Zoila Rosa M.D. on 02/06/2017 at 17:21 CT KUB 02/06 IMPRESSION: 1. Nonobstructing right nephrolithiasis. 2. Large right-sided bladder diverticula with irregular bladder wall thickening and perivesicular fat stranding. These findings are suspicious for cystitis. Specifically, infection within the bladder diverticula. 3. Findings suspicious for hepatic cirrhosis. 4. L1 wedge compression deformity which is new when compared with prior CT from 2012. The acuity of this finding is unknown. Please correlate with clinical history and evaluate for focal acute pain in this region. 5. Normal appendix. Dictated by: Zoila Rosa M.D. on 02/06/2017 at 20:11 Approved by: Zoila Rosa M.D. on 02/06/2017 at 20:18 Assessment & Plan Nathan Ponce is an 86-year-old male presenting with Diabetes, Aortic regurgitation, Hypertension, Obesity and GERD who presented to [facility] emergency department due to worsening back pain acute, active 1. intractable acute Lower back pain secondary to L1 wedge compression. Present on admission. -pt was initially was on ONLINE MERCHANDISING COORDINATOR dilaudid, then switched to oral agents, -started fentanyl patch 12mcg 3d, tramadol 50mg q8h, norco prn, tylenol prn -try to avoid narcotics as much as possible -daily PT -monitor closely on respiratory status, as pt is opioid naive urinary retention, POA, this is chronic problem, pt does self catheterization at home -reported that martinez was reinserted due to urinary retention -please advice pt to do self-cath regularly even without bladder sensation. severe ileus, POA, opioid induced -continue aggressive bowel regimen. chronic, stable 2 Diabetes Type 2, Chronic, holding Metformin, awaits A1c, continue low correction Lispro algorithm 3 Aortic root enlargement with mild to moderate aortic regurgitation, stable with no intervention after recent Cardiology evaluation 4 Hypertension, continue Losartan 50 mg daily 5 GERD, continue Protonix daily dispo:home with PT tomorrow, d/c was postponed today. Rx was in the chart, d/ c instruction is partially done. VTE Prophylaxis: Sub-Q Heparin (Unfractionated) VTE Mechanical Devices: Intermittant Pneumatic CD Resuscitation Status: CPR: Attempt Resuscitation Time spent 35min Chad Lima MD Feb 08, 2017 21:43
[2017-02-09 00:27] VITALS: BP 161/90; PULSE 75
[2017-02-09] MEDS: Heparin 5,000 Unit/mL Inj SUBQ SCH ×3 (00:49→16:34)
--- NOTE | 2017-02-09 01:00 | NUR ---
Pain/ Urine output At beginning of shift patient complains of 10/10 back pain when spasms occur. Also complains of abdominal distention and that he needs to void and have BM. Patient self caths at home, and has asked for martinez to be placed. Night hospitalist contacted, and ordered for a martinez to placed per patient needs. 1400cc out Immediately after martinez was placed. Patient states some relief from abdominal pressure, and has started to pass gas as well. 2 Tabs norco also given when time allowed and upon reassessment patient was finally able to fall asleep. Will continue to monitor and continue Q1 hour checks.
[2017-02-09] MEDS: HYDROcodone-APAP 5-325 mg Tablet PO PRN ×6 (01:16→20:51)
[2017-02-09 05:15] VITALS: BP 161/85; PULSE 76; RESP 20; O2SAT 95
--- NOTE | 2017-02-09 06:19 | NUR ---
Medication Discrepancy This morning 2 tabs of norco were to be given. When scanned, emar states that patient has exceeded acetaminophen dose, and so computer automatically exited out of administration. When trying to scan just one norco, bar codes were damaged and unable to scan, so another norco was taken out of the omni, scanned, and then returned back to omni right away. 1 Tab of norco was given, and 1 norco was left to be wasted, however unable to return the 1 tab to either omni. Pharmacy called and no discrepancies were found. Pharmacist contacted and states that she will waste damaged med down in pharmacy. Radha salas has come to take med to pharmacy at 0635 . Care continues.
[2017-02-09] MEDS: Insulin LISPRO 300 Unit/3 mL Inj SUBQ SCH ×4 (08:00→22:00)
[2017-02-09] MEDS: Lidocaine Topical 5% Patch TOPICAL SCH (08:47)
[2017-02-09] MEDS: Polyethylene Glycol (PEG) 17 Gm Powder PO SCH (08:47)
[2017-02-09] MEDS: cefTRIAXone Inj 2,000 MG in Dextrose 5% Minibag Plus 50 ML IV SCH (10:54)
[2017-02-09] MEDS ORDERED: Magnesium Hydroxide 10 mL Oral Concentration PO ONE (12:00)
--- NOTE | 2017-02-09 14:42 | NUR ---
constipation Notified hospitalist r/t constipation and new orders for magnesium Citrate. Medication given ORDERED.
--- NOTE | 2017-02-09 16:49 | NUR ---
Pain C/o back pain 6/10 but when moves 10/10 per patient report. PRN norco given as ordered 2 tablets for pain with effective pain management. family at bed side and aware. Magnisium Citrate given as ordered, patient continue to passing gas and trying to go to use toilet. stable blood sugars and insulin given as ordered. Cadrozo patent and draining clear yellow urine. call light with in reach for safety.
[2017-02-09 16:51] VITALS: BP 154/88; PULSE 81; RESP 22; O2SAT 95
--- NOTE | 2017-02-09 19:34 | NUR ---
Inpatient status effective today, SABRA signed.
[2017-02-09 20:42] VITALS: BP 186/82; PULSE 74; O2SAT 96
--- NOTE | 2017-02-09 23:16 | PCM.PNMED ---
Subjective Date of Service Feb 09, 2017 Subjective Patient complains of constipation/obstipation. He states he has not had a bowel movement since admission. He also complains of back pain which is increased from yesterday from a 3 out of 10 to an 8 out of 10. He did not do well with physical therapy today. He complains of dysuria as well. Is no other new complaints. Exam Vital Signs Vital Sign - Last Date Time Temp Pulse Resp B/P Pulse Ox O2 Delivery O2 Flow Rate FiO2 02/09/17 20:42 36.4 74 186/82 96 Room Air 02/09/17 16:51 22 02/07/17 14:30 2.00 Intake and Output 02/08/17 02/08/17 02/09/17 Cumulative From/Thru 15:00 23:00 07:00 02/06/17 14:17 - 02/09/17 06:08 Intake Total 800 ml 2154 ml 900 ml 4310 ml Output Total 1150 ml 1200 ml 2450 ml 6950 ml Balance -350 ml 954 ml -1550 ml -2640 ml Intake Oral 800 ml 2154 ml 900 ml 4244 ml IV Total 66 ml Output Urine Total 1150 ml 1200 ml 2450 ml 6950 ml # Bowel Movements 0 0 Exam General: Patient is in some distress secondary to the above complaints. HEENT: Head is atraumatic and normocephalic with normal male pattern baldness. Eyes: Pupils are equally round and reactive to light and accommodation. Extraocular muscles are intact. Sclera are white, anicteric. Subconjunctival mucosa is pink. Ears and nose are unremarkable. Oropharynx: There are no mucosal lesions, there is no thrush, there is no pharyngitis. Neck: Is supple, there are no nodes, or masses or tenderness. Chest: Is clear to auscultation and percussion. There are no rales, rhonchi, wheezes or rubs. Heart: Rate, rhythm is regular. There is no murmur, rub or gallop. Abdomen: Good bowel sounds are present. Abdomen is distended, nontender, no organomegaly or masses were appreciated. There is no guarding or rebound tenderness. Extremities: Are symmetrical and well perfused. There is no edema, there is no cellulitis, no rash. Neurologic: There are no focal neurological deficits. Cranial nerves II through XII are intact. There are no sensory or motor deficits. Psychiatric: Patients mood is calm and shows no sign of agitation. Genital: Deferred Rectal: Deferred Lab and Diagnostics Result Diagram: 02/08/1751902/08/17519 Microbiology Name: NATHAN BURNS Age/Sex: 86/M Attend Dr: Dayne Greenfield MD Acct: [id number] Unit: [id number] Status: ADM Danny Location: [place] [address]-1 Re02/06/17 Disch: Specimen: [id number] Collected: 02/07/17 Status: COMP Req#: [id number] Received: 02/07/17 Source: RANDOM Sp Desc : SC Yuliet Dr: Chad Lima MD Ordered: URINE CULT Procedure Result Verified Site Microbiology THA CULT URINE Final 02/09/17-0807 Organism 1 ESCHERICHIA COLI U COLONY COUNT/QUANTITY >100,000 CFU/ml Cefazolin-predicts results for the oral agents, cefaclor,cefdinir, cefpodoximen, cefprozil, cefuroximne axetil, cephalexin and loracarbed when used for therapy of uncomplicated UTI's due to E. coli, K. pneumoniae, and Proteus mirabilis. Cefpodoxime, cefdinir and cefuroxime axetil may be tested individually because some isolates may be susceptible to these agents while testing resistant to cefazolin. (CLSI V998-I70 pg 53) 1. ESCHERICHIA COLI M.I.C Interp --------- ------ * AMOXICILLIN/CLAVULATE 4 S * AMPICILLIN 8 S * CEFAZOLIN (CEPHALOSPORIN) UTI 4 S * CEFEPIME <=1 S * CEFTRIAXONE <=1 S * CEFUROXIME SODIUM 16 I * CIPROFLOXACIN >=4 R * ERTAPENEM <=0.5 S * GENTAMICIN <=1 S * IMIPENEM <=1 S * LEVOFLOXACIN >=8 R * NITROFURANTOIN >=512 R * TETRACYCLINE 2 S * TOBRAMYCIN <=1 S * TRIMETHOPRIM/SULFAMETHOXAZOLE <=20 S X-Rays, CTs and MRIs US RENAL SONOGRAM 02/06 IMPRESSION: 1. No hydronephrosis or nephrolithiasis. 2. Right bladder diverticulum. Dictated by: Zoila Rosa M.D. on 02/06/2017 at 17:18 Approved by: Zoila Rosa M.D. on 02/06/2017 at 17:21 CT KUB 02/06 IMPRESSION: 1. Nonobstructing right nephrolithiasis. 2. Large right-sided bladder diverticula with irregular bladder wall thickening and perivesicular fat stranding. These findings are suspicious for cystitis. Specifically, infection within the bladder diverticula. 3. Findings suspicious for hepatic cirrhosis. 4. L1 wedge compression deformity which is new when compared with prior CT from 2012. The acuity of this finding is unknown. Please correlate with clinical history and evaluate for focal acute pain in this region. 5. Normal appendix. Dictated by: Zoila Rosa M.D. on 02/06/2017 at 20:11 Approved by: Zoila Rosa M.D. on 02/06/2017 at 20:18 Assessment & Plan Nathan Burns is an 86-year-old male with Diabetes, Aortic regurgitation, Hypertension, Obesity and GERD who presented to [facility] emergency department due to worsening back pain. # Intractable acute Lower back pain secondary to L1 wedge compression. Present on admission. Active - The pt was initially was on DESTINATION SIGN REPAIRER dilaudid, then switched to oral agents, - The started fentanyl patch 12mcg 3d, tramadol 50mg q8h, norco prn, tylenol prn - We will try to avoid narcotics as much as possible . However, the patient is having increased pain and would not do much with physical therapy today. - We will continue daily PT - We will monitor closely on respiratory status, as pt is opioid naive # Urinary retention, present on admission, this is chronic problem, pt does self catheterization at home - The patient reported that martinez was reinserted due to urinary retention - The patient will need urology follow-up as now patient # Urinary tract infection with pyuria, present at the time of admission. Active - Patient had greater than 50 white blood cells on admission urinalysis - Patient has dysuria secondary to above. - We will start Rocephin 2 g IV every 24 hours. # The patient had severe ileus, present on admission, opioid induced - We will continue aggressive bowel regimen. - Add magnesium citrate today # Diabetes Type 2, Chronic - Continue holding Metformin, the hemoglobin A1c is 6.9, - We will continue low correction Lispro algorithm # Aortic root enlargement with mild to moderate aortic regurgitation - stable with no intervention after recent Cardiology evaluation # Hypertension - We will continue Losartan 50 mg daily # GERD - We will continue Protonix daily Disposition: Home when clinically stable and discharged when safe to do so. Pain Evaluation: Adequate Pain Control VTE Prophylaxis: Sub-Q Heparin (Unfractionated) VTE Mechanical Devices: Intermittant Pneumatic CD Resuscitation Status: CPR: Attempt Resuscitation AbenaIsmael MD Feb 09, 2017 23:16
[2017-02-10] MEDS: Heparin 5,000 Unit/mL Inj SUBQ SCH ×3 (00:49→16:53)
[2017-02-10] MEDS: HYDROcodone-APAP 5-325 mg Tablet PO PRN ×5 (00:50→22:29)
--- NOTE | 2017-02-10 02:44 | NUR ---
Pain Patient having significant pain when up ambulating 02/25. Piqua given q4. Patient trying to have BM, but states its difficult due to the pain. Patient A&OX3. Up independent standby assist w/FWW. Cardozo patent and draining. Vitals stable. Care continues.
[2017-02-10] MEDS: hydrOXYzine Pamoate 25 mg Capsule PO PRN ×3 (04:51→20:50)
[2017-02-10 06:04] VITALS: BP 155/66; PULSE 63; RESP 20; O2SAT 95
[2017-02-10 07:20] LABS: BASOPHILS % (AUTO) 0.3 % (0-3); EOSINOPHILS % (AUTO) 1.8 % (0-5); MONOCYTES % (AUTO) 14.1 % (4-12); Mean Corpuscular Hemoglobin 31.6 pg (27.0-35.0); Mean Corpuscular Volume 94.1 fL (81-100); NEUTROPHILS % (AUTO) 63.7 % (40-74); Platelet Count 174 bil/L (150-400)
[2017-02-10] MEDS: Insulin LISPRO 300 Unit/3 mL Inj SUBQ SCH ×4 (08:00→22:00)
[2017-02-10 08:03] LABS: Magnesium 2.4 mg/dL (1.6-2.6)
[2017-02-10] MEDS: Polyethylene Glycol (PEG) 17 Gm Powder PO SCH (08:08)
[2017-02-10] MEDS: Lidocaine Topical 5% Patch TOPICAL SCH (08:09)
[2017-02-10] MEDS: cefTRIAXone Inj 2,000 MG in Dextrose 5% Minibag Plus 50 ML IV SCH (10:24)
[2017-02-10] MEDS: Pantoprazole 40 mg ER24 Tablet PO SCH (13:06)
[2017-02-10 13:24] VITALS: BP 178/61; PULSE 76; RESP 16; O2SAT 95
--- NOTE | 2017-02-10 14:44 | NUR ---
Social Work- Continued D/C Planning Data: EMR reviewed. Pt is on day 4 of hospitalization for L1 Compression Fracture per H&P. Pt is not medically stable for discharge. PIERCE received call from pt's RN requesting MAITRE D speak with pt regarding discharge plan. Pt and pt's are concerned that pt's mobility is so limited at this time that pt is not safe to return home. PT has seen pt, though pt was not able to productively work with PT 02/10 secondary to uncontrolled pain. 02/09 pt was agreeable to therapy but not able to complete session. At that time, D/C recommendations pending further workup at next session. Per RN, pt is ambulating short distances from the bed to the bathroom in his room. SW met with pt and pt's at bedside regarding SNF placement. SW explained medical necessity and the requirement for a 3 midnight stay as an inpatient. Pt was made inpatient status 02/09 and received his first midnight. Pt used the bathroom during portions of this conversation. PIERCE explained that MD would be required to order SNF stay and MD has to feel that pt meets this level of acuity. Pt's stated understanding. SNF CHOICE LIST PROVIDED at bedside. Pt's states that first choice [facility] be [facility], but pt is agreeable to [facility], [facility], or [facility]. Pt's states that the pt requires a private room and they are willing to pay extra for this. Pt's states that a private room is the only way that pt would be agreeable to going to a facility. PIERCE spoke with MD regarding pt's level of care requirements. MD feels that pt would be medically appropriate for a SNF. PIERCE stated that pt is already set up with [facility] 2x week as well, MD will have to determine if pt's needs have increased beyond HH capacity. PIERCE also reminded MD of order requirement and requested this be done prior to MAITRE D acting on pt's SNF choices. MD agreeable. Pt may discharge to SNF pending acceptance and 3 midnights. Pt's is aware that back up plan includes pt returning home with [facility] 2[facility] week. SW will continue to follow. Assessment: Pt who may medically require SNF level of care pending MD order. Plan: MD will have to determine if pt's needs have increased beyond HH capacity. SW also reminded MD of order requirement and requested this be done prior to MAITRE D acting on pt's SNF choices. MD agreeable. Pt may discharge to SNF pending acceptance and 3 midnights. Pt's is aware that back up plan includes pt returning home with [facility] 2x week. SW will continue to follow. EILEEN Melendez
[2017-02-10 17:01] VITALS: BP 165/89; PULSE 70; RESP 18; O2SAT 95
--- NOTE | 2017-02-10 17:34 | NUR ---
Dysphasia Pt noted to cough after lunch sitting upright at side of bed. Conversation with pt and , it has been noted that he has a speech therapist and has been told to sit upright to eat -aid notified, board updated, continue to monitor dysphasia risk. No dysphasia diet recommended by speech therapy. MD notified, swallow eval ordered. Increased crackles/congestion post lunch coughing, rechecked on reassessment and lungs clear on ant/post.
[2017-02-10 20:00] VITALS: BP 167/82; PULSE 60; RESP 20; O2SAT 95
--- NOTE | 2017-02-10 23:01 | PCM.PNMED ---
Subjective Date of Service Feb 10, 2017 Subjective Patient has no new complaints. However, he is complaining of severe back pain and realizes at this point that there is no way that his can take care of him at home. He is now requesting to be transferred [place] a [place] facility or rehabilitation facility until he can become strong enough to go home. Exam Vital Signs Vital Sign - Last Date Time Temp Pulse Resp B/P Pulse Ox O2 Delivery O2 Flow Rate FiO2 02/10/17 20:00 37.0 60 20 167/82 95 Room Air 02/07/17 14:30 2.00 Intake and Output 02/09/17 02/09/17 02/10/17 Cumulative From/Thru 15:00 23:00 07:00 02/06/17 14:17 - 02/10/17 06:34 Intake Total 1218 ml 600 ml 6128 ml Output Total 1100 ml 950 ml 9000 ml Balance 118 ml -350 ml -2872 ml Intake Oral 1118 ml 600 ml 5962 ml IV Total 100 ml 166 ml Output Urine Total 1100 ml 950 ml 9000 ml # Bowel Movements 3 3 Exam General: Patient is in some distress secondary to the above complaints. HEENT: Head is atraumatic and normocephalic with normal male pattern baldness. Eyes: Pupils are equally round and reactive to light and accommodation. Extraocular muscles are intact. Sclera are white, anicteric. Subconjunctival mucosa is pink. Ears and nose are unremarkable. Oropharynx: There are no mucosal lesions, there is no thrush, there is no pharyngitis. Neck: Is supple, there are no nodes, or masses or tenderness. Chest: Is clear to auscultation and percussion. There are no rales, rhonchi, wheezes or rubs. Heart: Rate, rhythm is regular. There is no murmur, rub or gallop. Abdomen: Good bowel sounds are present. Abdomen is less distended today, nontender, no organomegaly or masses were appreciated. There is no guarding or rebound tenderness. Extremities: Are symmetrical and well perfused. There is no edema, there is no cellulitis, no rash. Neurologic: There are no focal neurological deficits. Cranial nerves II through XII are intact. There are no sensory or motor deficits. Psychiatric: Patients mood is calm and shows no sign of agitation. Genital: Deferred Rectal: Deferred Lab and Diagnostics Result Diagram: 02/10/1764702/10/1748 Microbiology Name: NATHAN BURNS Age/Sex: 86/M Attend Dr: Dayne Greenfield MD Acct: [id number] Unit: [id number] Status: ADM Danny Location: [facility] [place] 1021-1 Re02/06/17 Disch: Specimen: [id number] Collected: 02/07/17 Status: COMP Req#: [id number] Received: 02/07/17 Source: RANDOM Sp Desc : SC Subm Dr: Chad Lima MD Ordered: URINE CULT Procedure Result Verified Site Microbiology THA CULT URINE Final 02/09/17-0807 Organism 1 ESCHERICHIA COLI U COLONY COUNT/QUANTITY >100,000 CFU/ml Cefazolin-predicts results for the oral agents, cefaclor,cefdinir, cefpodoximen, cefprozil, cefuroximne axetil, cephalexin and loracarbed when used for therapy of uncomplicated UTI's due to E. coli, K. pneumoniae, and Proteus mirabilis. Cefpodoxime, cefdinir and cefuroxime axetil may be tested individually because some isolates may be susceptible to these agents while testing resistant to cefazolin. (CLSI L436-F30 pg 53) 1. ESCHERICHIA COLI M.I.C Interp --------- ------ * AMOXICILLIN/CLAVULATE 4 S * AMPICILLIN 8 S * CEFAZOLIN (CEPHALOSPORIN) UTI 4 S * CEFEPIME <=1 S * CEFTRIAXONE <=1 S * CEFUROXIME SODIUM 16 I * CIPROFLOXACIN >=4 R * ERTAPENEM <=0.5 S * GENTAMICIN <=1 S * IMIPENEM <=1 S * LEVOFLOXACIN >=8 R * NITROFURANTOIN >=512 R * TETRACYCLINE 2 S * TOBRAMYCIN <=1 S * TRIMETHOPRIM/SULFAMETHOXAZOLE <=20 S X-Rays, CTs and MRIs US RENAL SONOGRAM 02/06 IMPRESSION: 1. No hydronephrosis or nephrolithiasis. 2. Right bladder diverticulum. Dictated by: Zoila Rosa M.D. on 02/06/2017 at 17:18 Approved by: Zoila Rosa M.D. on 02/06/2017 at 17:21 CT KUB 02/06 IMPRESSION: 1. Nonobstructing right nephrolithiasis. 2. Large right-sided bladder diverticula with irregular bladder wall thickening and perivesicular fat stranding. These findings are suspicious for cystitis. Specifically, infection within the bladder diverticula. 3. Findings suspicious for hepatic cirrhosis. 4. L1 wedge compression deformity which is new when compared with prior CT from 2011. The acuity of this finding is unknown. Please correlate with clinical history and evaluate for focal acute pain in this region. 5. Normal appendix. Dictated by: Zoila Rosa M.D. on 02/06/2017 at 20:11 Approved by: Zoila Rosa M.D. on 02/06/2017 at 20:18 Assessment & Plan Nathan Burns is an 86-year-old male with Diabetes, Aortic regurgitation, Hypertension, Obesity and GERD who presented to [facility] emergency department due to worsening back pain. # Intractable acute Lower back pain secondary to L1 wedge compression. Present on admission. Active - The pt was initially was on CORRECTIONAL OFFICER CAPTAIN dilaudid, then switched to oral agents, - The started fentanyl patch 12mcg 3d, tramadol 50mg q8h, norco prn, tylenol prn - We will try to avoid narcotics as much as possible . However, the patient is having increased pain and would not do much with physical therapy again today. - We will continue daily PT - We will monitor closely on respiratory status, as pt is opioid naive - Patient is not realizing that he will likely need [place], as his will be unable to take care of him at home. # Urinary retention, present on admission, this is chronic problem, pt does self catheterization at home - The patient reported that martinez was reinserted due to urinary retention - The patient will need urology follow-up as now patient - Patient has requested that the Martinez catheter remained in place at this time. As he is having too much pain to self catheterize himself. # Urinary tract infection with pyuria and secondary to Escherichia coli, present at the time of admission. Active - Patient had greater than 50 white blood cells on admission urinalysis - Patient has dysuria secondary to above. - We will start Rocephin 2 g IV every 24 hours. # The patient had severe ileus, present on admission, opioid induced - We will continue aggressive bowel regimen. - Add magnesium citrate today # Diabetes Type 2, Chronic - Continue holding Metformin, the hemoglobin A1c is 6.9, - We will continue low correction Lispro algorithm # Aortic root enlargement with mild to moderate aortic regurgitation - stable with no intervention after recent Cardiology evaluation # Hypertension - We will continue Losartan 50 mg daily # GERD - We will continue Protonix daily Disposition: Patient is now realizing that he is not safe to go home as his would not be able to take care of them. He is not requesting to be transferred to a [place]. Will consult social science analyst for help in placement. Pain Evaluation: Adequate Pain Control VTE Prophylaxis: Sub-Q Heparin (Unfractionated) VTE Mechanical Devices: Intermittant Pneumatic CD Resuscitation Status: CPR: Attempt Resuscitation [place]mael MD Feb 10, 2017 23:01
[2017-02-11] MEDS: Heparin 5,000 Unit/mL Inj SUBQ SCH ×3 (00:49→16:54)
[2017-02-11] MEDS: hydrOXYzine Pamoate 25 mg Capsule PO PRN ×3 (03:01→23:20)
[2017-02-11] MEDS: HYDROcodone-APAP 5-325 mg Tablet PO PRN ×4 (03:01→21:59)
--- NOTE | 2017-02-11 03:50 | NUR ---
GI abdomen distended, no nausea, tolerating PO intake. No BM this shift, warm prune juice given at HS.
[2017-02-11 05:40] VITALS: BP 138/69; PULSE 60; RESP 16; O2SAT 94
[2017-02-11 06:28] LABS: BASOPHILS % (AUTO) 0.5 % (0-3); EOSINOPHILS % (AUTO) 2.2 % (0-5); MONOCYTES % (AUTO) 15.4 % (4-12); Mean Corpuscular Hemoglobin 31.6 pg (27.0-35.0); Mean Corpuscular Volume 94.5 fL (81-100); NEUTROPHILS % (AUTO) 58.9 % (40-74); Platelet Count 178 bil/L (150-400)
[2017-02-11 06:40] LABS: Magnesium 2.2 mg/dL (1.6-2.6)
[2017-02-11] MEDS: Insulin LISPRO 300 Unit/3 mL Inj SUBQ SCH ×4 (08:00→22:00)
[2017-02-11] MEDS: Polyethylene Glycol (PEG) 17 Gm Powder PO SCH (08:11)
[2017-02-11] MEDS: Pantoprazole 40 mg ER24 Tablet PO SCH (08:11)
[2017-02-11] MEDS: Lidocaine Topical 5% Patch TOPICAL SCH (08:12)
[2017-02-11 08:15] VITALS: BP 121/69; PULSE 67; O2SAT 94
[2017-02-11] MEDS: cefTRIAXone Inj 2,000 MG in Dextrose 5% Minibag Plus 50 ML IV SCH (09:23)
[2017-02-11 13:48] VITALS: BP 126/78; PULSE 66; RESP 18; O2SAT 96
--- NOTE | 2017-02-11 14:21 | NUR ---
[facility] Signed @ [phone]
--- NOTE | 2017-02-11 15:09 | DRSVH ---
PROCEDURE: X-RAY ACUTE ABDOMINAL SERIES ([id number]) INDICATIONS: Possible Ileus TECHNIQUE: One view chest and two views of the abdomen were acquired. COMPARISON: [facility], CT, CT KUB, 02/06/2017, 19:41. FINDINGS: Surgical changes and devices: None. Chest: Lungs are clear. Heart size is large. No pleural effusions. No pneumoperitoneum. Abdomen: There are multiple gas-filled loops of colon and small bowel. No definite small bowel dilata tion. Of note, the questionable old thickened haustral folds of the gas-filled bowel in the left uppe r quadrant raising the suspicion for mucosal edema. Bones: No suspicious bony lesions. IMPRESSION: 1. No radiographic evidence for ileus. 2. Questionable thickened haustral folds suggesting bowel wall edema of the colon in the left upper q uadrant. Dictated by: Zoila Rosa M.D. on 02/11/2017 at 15:02 Approved by: Zoila Rosa M.D. on 02/11/2017 at 15:07
--- NOTE | 2017-02-11 15:38 | NUR ---
GI Abdomen distended. Denies passing gas. Bowel tones present. Miralax, Senna, and prune juice given. MD ordered magnesium citrate. Pt had mild nausea this morning but states that it has since passed. Will continue to encourage ambulation and getting oob.
[2017-02-11 20:13] VITALS: BP 187/88; PULSE 90; RESP 18; O2SAT 96
[2017-02-11] MEDS: Phenazopyridine 97.5 mg Tablet PO PRN (21:08)
--- NOTE | 2017-02-12 00:03 | PCM.PNMED ---
Subjective Date of Service Feb 11, 2017 Subjective Patient continues to complain of severe back pain which does not hurt him too badly when he is not moving. However, whenever he gets up to move it causes him considerable amount of pain. He is now wanting to go to a [facility]. Exam Vital Signs Vital Sign - Last Date Time Temp Pulse Resp B/P Pulse Ox O2 Delivery O2 Flow Rate FiO2 02/11/17 20:13 36.1 90 18 187/88 96 Room Air 02/07/17 14:30 2.00 Intake and Output 02/10/17 02/10/17 02/11/17 Cumulative From/Thru 15:00 23:00 07:00 02/06/17 14:17 - 02/11/17 05:40 Intake Total 58 ml 750 ml 6936 ml Output Total 2200 ml 25082 ml Balance 58 ml -1450 ml -4264 ml Intake Oral 750 ml 6712 ml IV Total 58 ml 224 ml Output Urine Total 2200 ml 81645 ml # Bowel Movements 0 3 Exam General: Patient is in some distress secondary to the above complaints. HEENT: Head is atraumatic and normocephalic with normal male pattern baldness. Eyes: Pupils are equally round and reactive to light and accommodation. Extraocular muscles are intact. Sclera are white, anicteric. Subconjunctival mucosa is pink. Ears and nose are unremarkable. Oropharynx: There are no mucosal lesions, there is no thrush, there is no pharyngitis. Neck: Is supple, there are no nodes, or masses or tenderness. Chest: Is clear to auscultation and percussion. There are no rales, rhonchi, wheezes or rubs. Heart: Rate, rhythm is regular. There is no murmur, rub or gallop. Abdomen: Good bowel sounds are present. Abdomen is still distended, nontender, no organomegaly or masses were appreciated. There is no guarding or rebound tenderness. Extremities: Are symmetrical and well perfused. There is no edema, there is no cellulitis, no rash. Neurologic: There are no focal neurological deficits. Cranial nerves II through XII are intact. There are no sensory or motor deficits. Psychiatric: Patients mood is calm and shows no sign of agitation. Genital: Deferred Rectal: Deferred Lab and Diagnostics Result Diagram: 02/11/1752602/11/17526 Microbiology Name: NATHAN BURNS Age/Sex: 86/M Attend Dr: Dayne Greenfield MD Acct: [id number] Unit: [id number] Status: ADM Danny Location: [facility] [place] 1021-1 Re02/06/17 Disch: Specimen: [id number] Collected: 02/07/17 Status: COMP Req#: [id number] Received: 02/07/17 Source: RANDOM Sp Desc : DENNIS Horvath Dr: Chad Lima MD Ordered: URINE CULT Procedure Result Verified Site Microbiology THA CULT URINE Final 02/09/17-0807 Organism 1 ESCHERICHIA COLI U COLONY COUNT/QUANTITY >100,000 CFU/ml Cefazolin-predicts results for the oral agents, cefaclor,cefdinir, cefpodoximen, cefprozil, cefuroximne axetil, cephalexin and loracarbed when used for therapy of uncomplicated UTI's due to E. coli, K. pneumoniae, and Proteus mirabilis. Cefpodoxime, cefdinir and cefuroxime axetil may be tested individually because some isolates may be susceptible to these agents while testing resistant to cefazolin. (CLSI L848-M42 pg 53) 1. ESCHERICHIA COLI M.I.C Interp --------- ------ * AMOXICILLIN/CLAVULATE 4 S * AMPICILLIN 8 S * CEFAZOLIN (CEPHALOSPORIN) UTI 4 S * CEFEPIME <=1 S * CEFTRIAXONE <=1 S * CEFUROXIME SODIUM 16 I * CIPROFLOXACIN >=4 R * ERTAPENEM <=0.5 S * GENTAMICIN <=1 S * IMIPENEM <=1 S * LEVOFLOXACIN >=8 R * NITROFURANTOIN >=512 R * TETRACYCLINE 2 S * TOBRAMYCIN <=1 S * TRIMETHOPRIM/SULFAMETHOXAZOLE <=20 S X-Rays, CTs and MRIs US RENAL SONOGRAM 02/06 IMPRESSION: 1. No hydronephrosis or nephrolithiasis. 2. Right bladder diverticulum. Dictated by: Zoila Rosa M.D. on 02/06/2017 at 17:18 Approved by: Zoila Rosa M.D. on 02/06/2017 at 17:21 CT KUB 02/06 IMPRESSION: 1. Nonobstructing right nephrolithiasis. 2. Large right-sided bladder diverticula with irregular bladder wall thickening and perivesicular fat stranding. These findings are suspicious for cystitis. Specifically, infection within the bladder diverticula. 3. Findings suspicious for hepatic cirrhosis. 4. L1 wedge compression deformity which is new when compared with prior CT from 2011. The acuity of this finding is unknown. Please correlate with clinical history and evaluate for focal acute pain in this region. 5. Normal appendix. Dictated by: Zoila Rosa M.D. on 02/06/2017 at 20:11 Approved by: Zoila Rosa M.D. on 02/06/2017 at 20:18 PROCEDURE: X-RAY ACUTE ABDOMINAL SERIES ([id number]) INDICATIONS: Possible Ileus TECHNIQUE: One view chest and two views of the abdomen were acquired. COMPARISON: [facility], CT, CT KUB, 02/06/2017, 19:41. FINDINGS: Surgical changes and devices: None. Chest: Lungs are clear. Heart size is large. No pleural effusions. No pneumoperitoneum. Abdomen: There are multiple gas-filled loops of colon and small bowel. No definite small bowel dilatation. Of note, the questionable old thickened haustral folds of the gas-filled bowel in the left upper quadrant raising the suspicion for mucosal edema. Bones: No suspicious bony lesions. IMPRESSION: 1. No radiographic evidence for ileus. 2. Questionable thickened haustral folds suggesting bowel wall edema of the colon in the left upper quadrant. Dictated by: Zoila Rosa M.D. on 02/11/2017 at 15:02 Approved by: Zoila Rosa M.D. on 02/11/2017 at 15:07 Assessment & Plan Nathan Burns is an 86-year-old male with Diabetes, Aortic regurgitation, Hypertension, Obesity and GERD who presented to [facility] emergency department due to worsening back pain. # Intractable acute Lower back pain secondary to L1 wedge compression. Present on admission. Active - The pt was initially was on [employer] dilaudid, then switched to oral agents, - The started fentanyl patch 12mcg 3d, tramadol 50mg q8h, norco prn, tylenol prn - We will try to avoid narcotics as much as possible . However, the patient is having increased pain and would not do much with physical therapy again today. - We will continue daily PT - We will monitor closely on respiratory status, as pt is opioid naive - Patient is not realizing that he will likely need to be transferred to retirement facility, as his will be unable to take care of him at home. # Urinary retention, present on admission, this is chronic problem, pt does self catheterization at home - The patient reported that martinez was reinserted due to urinary retention - The patient will need urology follow-up as now patient - Patient has requested that the Martinez catheter remained in place at this time. As he is having too much pain to self catheterize himself. # Urinary tract infection with pyuria and secondary to Escherichia coli, present at the time of admission. Active - Patient had greater than 50 white blood cells on admission urinalysis - Patient has dysuria secondary to above. - We will start Rocephin 2 g IV every 24 hours. # The patient had severe ileus, present on admission, opioid induced - We will continue aggressive bowel regimen. - Add magnesium citrate as needed - As x-ray shows bilateral edema will check CT scan of the abdomen in a.m. # Diabetes Type 2, Chronic - Continue holding Metformin, the hemoglobin A1c is 6.9, - We will continue low correction Lispro algorithm # Aortic root enlargement with mild to moderate aortic regurgitation - stable with no intervention after recent Cardiology evaluation # Hypertension - We will continue Losartan 50 mg daily # GERD - We will continue Protonix daily Disposition: Patient continues to realize that he is not safe to go home as his would not be able to take care of them. He is now requesting to be transferred to a retirement facility. We have consulted psychotherapist social worker for help in placement. Pain Evaluation: Adequate Pain Control VTE Prophylaxis: Sub-Q Heparin (Unfractionated) VTE Mechanical Devices: Intermittant Pneumatic CD Resuscitation Status: CPR: Attempt Resuscitation Ismael Kraft MD Feb 12, 2017 00:03
[2017-02-12] MEDS: Heparin 5,000 Unit/mL Inj SUBQ SCH ×2 (00:46→08:31)
[2017-02-12] MEDS: HYDROcodone-APAP 5-325 mg Tablet PO PRN ×3 (02:31→12:42)
[2017-02-12 04:55] VITALS: BP 167/81; PULSE 95; RESP 16; O2SAT 96
[2017-02-12] MEDS: Phenazopyridine 97.5 mg Tablet PO PRN (05:04)
--- NOTE | 2017-02-12 06:14 | NUR ---
GI Pt abdomen distended, BT very active. Pt had rec'd multiple bowel meds during day shift. Pt had 2 extra large loose BM's and up to BR with gas x3. C/O pain to urethra, requested pyridium. MD here and ordered. Pt rec'd 2 doses total with + effects. Pt has severe pain, 8/10 and requested PRN vicodin regularly. Care continues
[2017-02-12 06:48] LABS: Magnesium 2.3 mg/dL (1.6-2.6)
[2017-02-12] MEDS: Insulin LISPRO 300 Unit/3 mL Inj SUBQ SCH ×2 (08:00→12:41)
[2017-02-12] MEDS: Pantoprazole 40 mg ER24 Tablet PO SCH (08:29)
[2017-02-12] MEDS: Polyethylene Glycol (PEG) 17 Gm Powder PO SCH (08:30)
[2017-02-12] MEDS: Lidocaine Topical 5% Patch TOPICAL SCH (08:31)
--- NOTE | 2017-02-12 09:32 | NUR ---
Evaluation completed. Please go to "Notes" then click on "Assessments and Notes" (bottom left corner of screen). Then select appropriate discipline tab on top of screen.
[2017-02-12] MEDS: cefTRIAXone Inj 2,000 MG in Dextrose 5% Minibag Plus 50 ML IV SCH (11:49)
--- NOTE | 2017-02-12 12:32 | NUR ---
Social Work: Continued Discharge Planning D: EMR reviewed. Pt is on day 6 of hospitalization (admitted 02/09). PIERCE received MD order to coordinate SNF, PIERCE provided choicelist, pt's first choice is [facility], second is [facility]. Pt requested private room is SNF can accommodate. PIERCE called Faiza at [facility] and referred pt, gave access. Faiza stated she may have a private room available if pt discharges today. Per MD, pt is medically stable for discharge today. PIERCE faxed face sheet and asked Faiza to confirm pt's acceptance and private room after review. PIERCE will update pt and family and await call from [facility]. A: Pt for whom a SNF has been deemed medically necessary. P: PIERCE referred pt to [facility] and requested private room. IPERCE will update family on status and await [facility] determination. EILEEN Mcclure Addendum: 02/12/17 at 1241 by ARIELLE MIKE PIERCE received T/C from Faiza confirming that pt is accepted with Dr. Pandya to follow. Pt will be accepted into a double-room with no one else in the room and then transferred to a private room this evening once the other pt discharges. PIERCE will update family. EILEEN Mcclure
--- NOTE | 2017-02-12 13:17 | NUR ---
Social Work: Readiness for Discharge D: EMR reviewed. Pt is on day 6 of hospitalization. Pt has been accepted at [facility] with Dr. Ardon to follow. Pt to transport via cabulance at 1530 today. Pt and family updated and agreeable. RN updated. Transfer packet completed and left at RN station. A: Pt for whom a SNF has been deemed medically necessary. P: Pt to discharge to [facility] at 1530 today via cabulance. Pt and family updated and agreeable to plan. Transfer packet completed and left at RN station pick-up. Faiza from [facility] confirmed pt will be able to have private room as one will be available by pt's time of arrival. SW will continue to follow. EILEEN Mcclure
--- NOTE | 2017-02-12 13:40 | PCM.DIMED ---
Discharge Instructions Date of Service Feb 12, 2017 Dates of Hospitalization Feb 06, 2017 at 22:37 Discharge Diagnosis Discharge Diagnosis Intractable back pain likely due to L1 compression fracture Medication Instructions Additional med instructions Pain regimen Mobic once per day [id number] three time per day as needed Lidocaine patch daily Fentanyl 12mcg patch every 3days Flexeril 5mg three times a day as needed Please also take Miralax, colace while your are on these pain regimen Diet Discharge Diet: No restrictions Activity Discharge Activity: Outpatient Physical Therapy (At the SNF) Call your provider Call your provider for: Fever or Chills, Shortness of breath, Bleeding, Chest pain, Vomitting, Excessive diarrhea, Weakness (unilateral), Other Patient Instructions Patient Instructions You were hospitalized due to severe back pain, likely due to compression fracture at your lower back. You were started on new regimen for your pain, pain was relatively controlled well. Please continue to work with physical therapy at home. follow up with your doctor in 2weeks Follow-up Provider: Dg Doll MD Follow-up with PCP in: 1 week (Patient needs a referral to a Neurosurgeon or an orthopedic spine surgeon.) Ismael Kraft MD Feb 12, 2017 13:40
[2017-02-12] MEDS ORDERED: Acetaminophen PO (13:59)
[2017-02-12] MEDS ORDERED: LOSA50TA3 PO (13:59)
[2017-02-12] MEDS ORDERED: CYCL10TA9 PO (13:59)
[2017-02-12] MEDS ORDERED: PANT40TA3 PO (13:59)
[2017-02-12] MEDS ORDERED: MELO-259 PO (13:59)
[2017-02-12] MEDS ORDERED: CEFD300C3 PO (13:59)
[2017-02-12] MEDS ORDERED: INSLIS SUBQ (13:59)
[2017-02-12] MEDS ORDERED: POLY17PO6 PO (13:59)
--- NOTE | 2017-02-12 14:24 | NUR ---
Social Work: Discharge D: EMR reviewed. Pt is on day 6 of hospitalization. Pt has been accepted at [facility] with Dr. Ardon to follow. Pt to transport via cabulance at 1530 today. Pt and family updated and agreeable. RN updated. Transfer packet with hard rx completed and left at RN station. A: Pt for whom a SNF has been deemed medically necessary. P: Pt to discharge to [facility] at 1530 today via cabulance. Pt and family updated and agreeable to plan. Transfer packet completed and left at RN station pick-up. Faiza from [facility] confirmed pt will be able to have private room as one will be available by pt's time of arrival. SW will continue to follow. EILEEN Mcclure
--- NOTE | 2017-02-12 16:31 | NUR ---
Discharge Orders for discharge were received. The patient was made aware of the plan to discharge to [facility]. Patient and family in agreement with plan. The patient's asymptomatic IV was removed intact and the patient's belongings were gathered. The patient ambulated into a wheelchair and was wheeled to the main entrance where he entered a private transportation company vehicle. At the time of discharge the patient was alert and oriented, denying nausea, out of control pain or other difficulty. Report called to NAOMIE Pavon at receiving facility.
--- NOTE | 2017-02-12 23:15 | PCM.DC.MED ---
Discharge Summary Date of Service Feb 12, 2017 Dates of Hospitalization Date of Hospital Admission Feb 06, 2017 at 22:37 Date of Discharge: Feb 12, 2017 Providers: Admitting Physician: Ismael Kraft MD Primary Care Physician: Dg Doll MD Attending Physician: Ismael Kraft MD Diagnosis at Time of Discharge Diagnosis at Time of Discharge Intractable back pain likely due to L1 compression fracture Procedures XRay, CTs & MRIs US RENAL SONOGRAM 02/06 IMPRESSION: 1. No hydronephrosis or nephrolithiasis. 2. Right bladder diverticulum. Dictated by: Zoila Rosa M.D. on 02/06/2017 at 17:18 Approved by: Zoila Rosa M.D. on 02/06/2017 at 17:21 CT KUB 02/06 IMPRESSION: 1. Nonobstructing right nephrolithiasis. 2. Large right-sided bladder diverticula with irregular bladder wall thickening and perivesicular fat stranding. These findings are suspicious for cystitis. Specifically, infection within the bladder diverticula. 3. Findings suspicious for hepatic cirrhosis. 4. L1 wedge compression deformity which is new when compared with prior CT from 2011. The acuity of this finding is unknown. Please correlate with clinical history and evaluate for focal acute pain in this region. 5. Normal appendix. Dictated by: Zoila Rosa M.D. on 02/06/2017 at 20:11 Approved by: Zoila Rosa M.D. on 02/06/2017 at 20:18 PROCEDURE: X-RAY ACUTE ABDOMINAL SERIES ([id number]) INDICATIONS: Possible Ileus TECHNIQUE: One view chest and two views of the abdomen were acquired. COMPARISON: [facility], CT, CT KUB, 02/06/2017, 19:41. FINDINGS: Surgical changes and devices: None. Chest: Lungs are clear. Heart size is large. No pleural effusions. No pneumoperitoneum. Abdomen: There are multiple gas-filled loops of colon and small bowel. No definite small bowel dilatation. Of note, the questionable old thickened haustral folds of the gas-filled bowel in the left upper quadrant raising the suspicion for mucosal edema. Bones: No suspicious bony lesions. IMPRESSION: 1. No radiographic evidence for ileus. 2. Questionable thickened haustral folds suggesting bowel wall edema of the colon in the left upper quadrant. Dictated by: Zoila Rosa M.D. on 02/11/2017 at 15:02 Approved by: Zoila Rosa M.D. on 02/11/2017 at 15:07 Brief History Nathan Burns is an 86-year-old male presenting with Diabetes, Aortic regurgitation, Hypertension, Obesity and GERD who presented to [facility] emergency department due to worsening back pain Patient reported he has been having on and off back pain for year but since the pain has progressively worsened. He was mowing his lawn and was bending over a lot when he felt the pain. Pain manly located in the lumbar area , described as like someone stabbing a sharp knife, no radiation down his legs and no bowel or urinary bowel dysfunction. Associated symptoms includes limited mobility due to pain, difficulty walking. Denies fever, HIV, organ transplant, immunosuppression, recent surgery, recent infection, history of back surgery, surgical implants and IV drug use. He was evaluated to the emergency department 3 days ago treated with cyclobenzaprine, ketorolac. Patient does not find NSAIDs and acetaminophen helpful. Case discussed with HAROON Harrell who spoke to Dr Alvarado (Spinal surgeon) after imaging confirmed L1 compression. No emergent surgery indicated and plans to admit to hospital for pain control. Patient was admitted to the hospitalist service. Hospital Course Nathan Burns is an 86-year-old male with Diabetes, Aortic regurgitation, Hypertension, Obesity and GERD who presented to [facility] emergency department due to worsening back pain. Patient was admitted to the hospital service for further evaluation and treatment. # Intractable acute Lower back pain secondary to L1 wedge compression. Present on admission. 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 However, the patient is having increased pain and would not do much with physical therapy again today. - We will continue daily PT - We will monitor closely on respiratory status, as pt is opioid naive - Patient is not realizing that he will likely need to be transferred to penitentiary facility, as his will be unable to take care of him at home. Continues care at a penitentiary facility. # Urinary retention, present on admission, this is chronic problem, pt does self catheterization at home - The patient reported that martinez was reinserted due to urinary retention - The patient will need urology follow-up as now patient - Patient has requested that the Martinez catheter remained in place at this time. As he is having too much pain to self catheterize himself. Martinez will be left in place. # Urinary tract infection with pyuria and secondary to Escherichia coli, present at the time of admission. Active - Patient had greater than 50 white blood cells on admission urinalysis - Patient has dysuria secondary to above. - Patient was Rocephin 2 g IV every 24 hours. This will be changed to cefdinir 300 mg by mouth twice a day to complete a 14 day course. # The patient had severe ileus, present on admission, opioid induced - We will continue aggressive bowel regimen. - Add magnesium citrate as needed - As x-ray shows bilateral edema will check CT scan of the abdomen in a.m. # Diabetes Type 2, Chronic - Continue holding Metformin, the hemoglobin A1c is 6.9, - We will continue low correction Lispro algorithm # Aortic root enlargement with mild to moderate aortic regurgitation - stable with no intervention after recent Cardiology evaluation # Hypertension - We will continue Losartan 50 mg daily # GERD - We will continue Protonix daily Disposition: Patient continues to realize that he is not safe to go home as his would not be able to take care of them. He will be transferred to [facility] today. Exam Vital Signs (Last) Date Time Temp Pulse Resp B/P Pulse Ox O2 Delivery O2 Flow Rate FiO2 02/12/17 12:32 Room Air 02/12/17 04:55 36.2 95 16 167/81 96 02/07/17 14:30 2.00 Test 02/06/17 16:35 02/07/17 21:00 02/08/17 05:20 02/11/17 05:27 Hemoglobin A1c 6.9% (4.8-5.6) Troponin T < 0.010ug/L (0.0-0.011) Hold Law Top Tube Received (Received) Urine Color Yellow (YELLOW) Urine Appearance Cloudy (CLEAR,HAZY) Urine pH 5.5 (5.0-8.0) Urine Specific [place] 1.020 (1.003-1.035) Urine Protein Tracemg/dL (NEG,TRACE) Urine Glucose (UA) Negativemg/dL (NEGATIVE) Urine Ketones Negativemg/dL (NEGATIVE) Urine Occult Blood Moderate (NEGATIVE) Urine Nitrite Positive (NEGATIVE) Urine Bilirubin Negative (NEGATIVE) Urine Urobilinogen Normalmg/dL (NORMAL) Urine Leukocyte Esterase Moderate (NEGATIVE) Urine RBC 11-50/hpf (0-2) Urine WBC >50/hpf (0-5) Urine Epithelial Cells Few/hpf (NONE-MOD) Urine Crystals None seen (NONE SEEN) Urine Bacteria Moderate/hpf (NONE-FEW) Urine Hyaline Casts None/lpf (NONE) Urine Granular Casts None seen (NONE SEEN) Urine Waxy Casts None seen (NONE SEEN) Urine Red Blood Cell Casts None seen (NONE SEEN) Urine White Blood Cell Casts None seen (NONE SEEN) Urine Mucus None seen (None Seen) Urine Trichomonas None seen (NONE SEEN) Urine Yeast None (NONE SEEN) Urinalysis Comment None Urine Culture Reflexed Indicated Phosphorus Level 3.5mg/dL (2.5-4.9) White Blood Count 8.8th/mm3 (3.8-10.1) Red Blood Count 4.55mil/mm3 (4.40-5.80) Hemoglobin 14.4g/dL (13.8-17.2) Hematocrit 43.0% (41.0-50.0) Mean Corpuscular Volume 94.5fL (81-100) Mean Corpuscular Hemoglobin 31.6pg (27.0-35.0) Mean Corpuscular Hemoglobin Concent 33.5% (32.0-37.0) Red Cell Distribution Width 13.2% (12.3-15.4) Platelet Count 178bil/L (150-400) Neutrophils (%) (Auto) 58.9% (40-74) Lymphocytes (%) (Auto) 22.7% (14-46) Monocytes (%) (Auto) 15.4% (4-12) Eosinophils (%) (Auto) 2.2% (0-5) Basophils (%) (Auto) 0.5% (0-3) Test 02/12/17 05:40 Sodium Level 134mEq/L (134-144) Potassium Level 4.5mEq/L (3.5-5.2) Chloride Level 95mEq/L (97-108) Carbon Dioxide Level 25mmol/L (18-29) Blood Urea Nitrogen 12mg/dL (8-27) Creatinine 0.80mg/dL (0.76-1.27) Estimat Glomerular Filtration Rate 98mL/min (>59) Glucose Level 145mg/dL (60-99) Calcium Level 9.3mg/dL (8.5-10.1) Magnesium Level 2.3mg/dL (1.6-2.6) Total Bilirubin 0.5mg/dL (0.0-1.2) Aspartate Amino Transf (AST/SGOT) 33U/L (0-50) Alanine Aminotransferase (ALT/SGPT) 31U/L (0-44) Alkaline Phosphatase 172U/L (25-160) Total Protein 7.2g/dL (6.4-8.4) Albumin 3.5g/dL (3.4-5.0) Microbiology Results Name: NATHAN BURNS Age/Sex: 86/M Attend Dr: Dayne Greenfield MD Acct: [id number] Unit: [id number] Status: ADM Danny Location: [facility] 1021-1 Re02/06/17 Disch: Specimen: [id number] Collected: 02/07/17 Status: FRAN Req#: [id number] Received: 02/07/17 Source: RANDOM Sp Desc : DENNIS Horvath Dr: Chad Monaco MD Ordered: URINE CULT Procedure Result Verified Site Microbiology THA CULT URINE Final 02/09/17 Organism 1 ESCHERICHIA COLI U COLONY COUNT/QUANTITY >100,000 CFU/ml Cefazolin-predicts results for the oral agents, cefaclor,cefdinir, cefpodoximen, cefprozil, cefuroximne axetil, cephalexin and loracarbed when used for therapy of uncomplicated UTI's due to E. coli, K. pneumoniae, and Proteus mirabilis. Cefpodoxime, cefdinir and cefuroxime axetil may be tested individually because some isolates may be susceptible to these agents while testing resistant to cefazolin. (CLSI Q047-H59 pg 53) 1. ESCHERICHIA COLI M.I.C Interp --------- ------ * AMOXICILLIN/CLAVULATE 4 S * AMPICILLIN 8 S * CEFAZOLIN (CEPHALOSPORIN) UTI 4 S * CEFEPIME <=1 S * CEFTRIAXONE <=1 S * CEFUROXIME SODIUM 16 I * CIPROFLOXACIN >=4 R * ERTAPENEM <=0.5 S * GENTAMICIN <=1 S * IMIPENEM <=1 S * LEVOFLOXACIN >=8 R * NITROFURANTOIN >=512 R * TETRACYCLINE 2 S * TOBRAMYCIN <=1 S * TRIMETHOPRIM/SULFAMETHOXAZOLE <=20 S Discharge Medications Discharge Medications ([lip-flavonoid]) TAB DAILY (Reported) ([Fentanyl]) 1 PATCH PATCH 1 PATCH TOPICAL Q3D Prescribed by: CHAD MONACO MD ([Acetaminophen]) 325 MG TABLET 650 MG PO TID Prescribed by: CHAD MONACO MD Cefdinir (Cefdinir) 300 Mg Capsule 300 MG PO BID Prescribed by: SHAISTA KRAFT MD Glipizide ER (Glipizide ER) 5 Mg Tab.er.24 5 MG PO DAILY (Reported) Insulin Human Lispro (HumaLOG U100 Insulin Vial) 100 Unit/Ml Unit 0 UNIT SUBQ WMHS Check blood sugars before meals and at bedtime. Use correction factor only before meals. Blood Sugar Lispro Correction: <151, 0 units; 151-175, 1 unit; 176-200, 2 units; 201-225, 3 units; 226-250, 4 units; 251-275, 5 units; 276-300 , 6 units; 301-325, 7 units; 326-350, 8 units; 351-375, 9 units; 376-400, 10 units; >400, 12 units. Prescribed by: SHAISTA KRAFT MD Lidocaine (Lidoderm) 700 Mg Adh..patch 1 PATCH TOPICAL DAILY Prescribed by: CHAD MONACO MD Losartan Potassium (Cozaar) 50 Mg Tablet 50 MG PO DAILY Prescribed by: SHAISTA KRAFT MD Meloxicam (Meloxicam) 7.5 Mg Tablet 7.5 MG PO DAILY Prescribed by: SHAISTA KRAFT MD Multivitamin (Multi Vitamin Daily) 1 Each Tablet 1 EACH PO DAILY (Reported) Pantoprazole DR (Pantoprazole DR) 40 Mg Tablet.dr 40 MG PO DAILY (Reported) Pantoprazole DR (Pantoprazole DR) 40 Mg Tablet.dr 40 MG PO DAILYAC Prescribed by: SHAISTA KRAFT MD Polyethylene Glycol 3350 (Miralax) 17 Gm Powd.pack 17 GM PO DAILY Prescribed by: CHAD MONACO MD Polyethylene Glycol 3350 (Miralax) 17 Gm Powd.pack 17 GM PO DAILY Prescribed by: SHAISTA KRAFT MD Tramadol (Ultram) 50 Mg Tablet 50 MG PO TID Prescribed by: CHAD MONACO MD As needed ([Acetaminophen]) 325 MG TABLET 650 MG PO Q6H PRN PRN For Mild Pain or Fever Prescribed by: SHAISTA KRAFT MD Cyclobenzaprine (Cyclobenzaprine) 5 Mg Tablet 5 MG PO HS PRN PRN Spasm Prescribed by: ROBYN ROLLINS Cyclobenzaprine (Cyclobenzaprine) 10 Mg Tablet 5 MG PO TID PRN PRN For Spasm Prescribed by: SHAITSA KRAFT MD Docusate Sodium (Colace) 100 Mg Capsule 100 MG PO DAILY PRN PRN For Constipation Prescribed by: CHAD MONACO MD Miscellaneous Medications ([Saline Nasal [place]]) (Reported) Losartan Potassium (Losartan Potassium) 50 Mg Tablet 50 MG PO (Reported) Additional med instructions Pain regimen Mobic once per day [id number] three time per day as needed Lidocaine patch daily Fentanyl 12mcg patch every 3days Flexeril 5mg three times a day as needed Please also take Miralax, colace while your are on these pain regimen Followup Plan Disposition: She is being transferred to [facility] today. Discharge Diet: No restrictions Discharge Activity: Outpatient Physical Therapy (At the [facility]) Patient Instructions You were hospitalized due to severe back pain, likely due to compression fracture at your lower back. You were started on new regimen for your pain, pain was relatively controlled well. Please continue to work with physical therapy at home. follow up with your doctor in 2weeks Follow-up Provider: Dg Doll MD Follow-up with PCP in: 1 week (Patient needs a referral to a Neurosurgeon or an orthopedic spine surgeon.) Time spent Time spent on discharging this patient was greater than 35 minutes, over half of which was involved in counseling and coordination of care. Ismael Kraft MD Feb 12, 2017 23:15
== END 2017-02-12 15:20 | DRG 552 ==
LOC: SED 14:04 → OSC 22:37 → OBSVTOIN 22:37 → OSC 22:46
PROVIDERS: ADMIT Internal Medicine Infectious Disease; ATTEND Hospitalist
DX: S32.010A Wedge compression fracture of first lumbar vertebra, initial encounter for closed fracture (principal); N39.0 Urinary tract infection, site not specified; K56.7 Ileus, unspecified; E11.9 Type 2 diabetes mellitus without complications; B96.20 Unspecified Escherichia coli [E. coli] as the cause of diseases classified elsewhere; I35.1 Nonrheumatic aortic (valve) insufficiency; I10 Essential (primary) hypertension; K21.9 Gastro-esophageal reflux disease without esophagitis; T40.2X5A Adverse effect of other opioids, initial encounter; N40.1 Benign prostatic hyperplasia with lower urinary tract symptoms; R33.8 Other retention of urine; Y92.007 Garden or yard of unspecified non-institutional (private) residence as the place of occurrence of the external cause; Y93.H2 Activity, gardening and landscaping; X50.1XXA Overexertion from prolonged static or awkward postures, initial encounter; Z87.891 Personal history of nicotine dependence; Z79.84 Long term (current) use of oral hypoglycemic drugs; Z79.82 Long term (current) use of aspirin